=== PATIENT | female | born 1940 | race African-American/Black ===

== ENCOUNTER 2020-05-28 06:48 | Outpatient (REF) | payer SELFPAY | END 2020-05-28 06:49 | disposition home or self-care (01) | LOC: HO.MMNH1L 06:48 | PROVIDERS: Visit Provider Family Medicine | DX: Z13.89 Encounter for screening for other disorder (principal) ==

== ENCOUNTER 2020-06-06 07:12 | Outpatient (REF) | payer SELFPAY ==
[2020-06-06 07:29] LABS: INTERNATIONAL NORM RATIO 2.1 (0.9-1.1); Prothrombin Time 24.7 SEC (10.8-13.0)
== END 2020-06-06 07:13 | disposition home or self-care (01) ==
LOC: HO.MMNH1L 07:12
PROVIDERS: Visit Provider Family Medicine
DX: I48.91 Unspecified atrial fibrillation (principal)
CPT/HCPCS: 36415; 85610

== ENCOUNTER 2020-06-09 12:48 | Outpatient (REF) | payer MEDICARE, SELFPAY ==
[2020-06-09 08:24] LABS: INTERNATIONAL NORM RATIO 1.5 (0.9-1.1); Prothrombin Time 17.9 SEC (10.8-13.0)
[2020-06-09 08:26] LABS: Mean Corpuscular HGB Conc 31.3 g/dl (31.0-35.0); Mean Corpuscular Hemoglobin 30.7 pg (27.0-33.0); Mean Platelet Volume 9.7 fL (9.4-12.3); Platelet Count 248 X10*3/uL (160-400); Red Blood Count 2.05 X10*6/uL (4.20-5.50); Red Cell Distribution Width 16.3 % (11.0-16.0); White Blood Count 4.7 X10*3/uL (4.8-10.8)
[2020-06-09 09:04] LABS: Anion Gap 13 (12-20); Blood Urea Nitrogen 23 mg/dL (9-16); Calcium 7.6 mg/dL (8.4-10.2); Carbon Dioxide 34 mmol/L (22-29); Chloride 96 mmol/L (96-108); Estimated Glomerular Filt Rate 12; Glucose Random 79 mg/dL (60-115); Potassium 3.4 mmol/L (3.3-5.1); Sodium 140 mmol/L (135-145)
[2020-06-09 09:34] LABS: Hematocrit 20.1 % (37-47); Hemoglobin 6.3 g/dl (12.0-16.0)
== END 2020-06-09 12:49 | disposition home or self-care (01) ==
LOC: HO.MMNH1L 12:48
PROVIDERS: Visit Provider Family Medicine
DX: I82.409 Acute embolism and thrombosis of unspecified deep veins of unspecified lower extremity (principal); I12.0 Hypertensive chronic kidney disease with stage 5 chronic kidney disease or end stage renal disease; N18.6 End stage renal disease
CPT/HCPCS: 36415; 80048; 85027; 85060; 85610

== ENCOUNTER 2020-07-14 01:04 | Outpatient (REF) | payer SELFPAY | END 2020-07-14 01:05 | disposition home or self-care (01) | LOC: HO.MMNH2L 01:04 | PROVIDERS: Visit Provider Family Medicine | DX: Z13.89 Encounter for screening for other disorder (principal) ==

== ENCOUNTER 2020-07-17 12:30 | Emergency (ER) | payer MEDICARE, SELFPAY ==
--- NOTE | ~2020-07-17 | CT_ITS ---
EXAMINATION: CT HEAD WITHOUT CONTRAST CLINICAL INFORMATION: Altered mental status COMPARISON: None TECHNIQUE: Contiguous axial imaging was performed from the skull base to vertex without intravenous administration of contrast. Additional 2-D coronal and sagittal reformatted images are generated on the CT workstation and uploaded to PACS. This CT examination was performed using dose optimization techniques as appropriate, variously including the following: *Automated exposure control *Adjustment of mA and/or kV according to patient size (this includes techniques or standardized protocols for targeted exams where dose is matched to indication/reason for exam; i.e. extremities or head) *Use of iterative reconstruction technique DLP: 692 mGy-cm FINDINGS: There is no intracranial hemorrhage or hematoma. The ventricles are normal in size and contour. There is no hydrocephalus and no edema or mass effect or midline shift. There are mild to moderate atrophic changes with prominence of the cortical sulci and fissures and cisterns. There is somewhat greater involvement in the frontal lobes with secondary mild frontal hygromas. There is no visible acute territorial infarct or mass lesion. There is incidental small bilateral basal ganglia calcifications. The calvarium appears intact. There is no pneumocephalus or orbital emphysema. The visualized sinuses and middle ears and mastoid air cells show no significant mucosal thickening. There are no air-fluid levels. CT/CT head/brain wo con IMPRESSION: 1. No acute intracranial abnormality. 2. Mild to moderate global atrophic changes, greater frontal lobes.
[2020-07-17 12:43] VITALS: BP 172/73; BP 178/79; PULSE 80; RESP 16; TEMP 37.1; O2SAT 96; BMI 34.3
[2020-07-17 12:50] LABS: Glucose, Whole Blood 80 mg/dL (60-115)
--- NOTE | 2020-07-17 12:53 | ECG_ITS ---
Test Reason : SYNCOPE Blood Pressure : / mmHG Vent. Rate : 075 BPM Atrial Rate : 075 BPM P-R Int : 184 ms QRS Dur : 152 ms QT Int : 500 ms P-R-T Axes : 077 -80 042 degrees QTc Int : 558 ms Sinus rhythm with marked sinus arrhythmia Right bundle branch block Left anterior fascicular block Bifascicular block Abnormal ECG When compared with ECG of 13-JUL-2005 10:39, QT has lengthened Referred By: Eufemia Awan Electronically Signed By:TIM CHACON
--- NOTE | 2020-07-17 13:00 | ED_ITS ---
HPI - General Adult General Chief complaint: General Medical Stated complaint: SYNCOPAL EPISODE VS ABSENT SZ @ DIALYSIS Time Seen by Provider: 07/17/20 12:53 Source: patient Mode of arrival: EMS Limitations: no limitations History of Present Illness HPI narrative: 80 y/o female with history of ESRD on HD Tues/Thus/Sat, large bowel obstruction s/p colostomy, multiple myeloma with chronic anemia (requiring multiple transfusions) & HTN who presents to the ED via EMS after she reportedly had an unresponsive episode about 1 hour into her dialysis session today. Per EMS she was just starting into space and not following commands. It is unclear if she was hypotensive but reportedly she was given fluids back. Session was terminated and she was brought to [facility] ED for evaluation. She arrives AAOx3 and recalls 5-6 people standing over her in dialysis. She does not recall what happened but states nothing like this has happened to her before. She denies history of seizures. She reports feeling cold prior to this event. She is a poor historian and does not know her medical history. Spoke with Amber at [facility] in [place] who witnessed the event - patient starred into space and was not verbalizing or following commands for about 2 minutes. 911 was called and by the time they got off the phone she was AAOx3. BP was stable in the 160s for the duration. No history of the same. She was not confused. She did not want to come to the hospital but was encouraged to do so because she lives home alone. complaint: altered mental status Onset (ago): hour(s) (1) Radiation: non-radiation Severity scale (1-10): 3 Pain Consistency: now resolved Relieving factors: none Exacerbating factors: none Associated symptoms: denies other symptoms Treatments prior to arrival: none Related Data Home Medications Medication Instructions Recorded Confirmed B complex with C 20-folic acid 1 cap PO DAILY 07/17/20 07/17/20 [Renal Caps] acyclovir 400 mg PO DAILY 07/17/20 07/17/20 amlodipine 1 tab PO DAILY 07/17/20 07/17/20 amlodipine 2.5 mg PO DAILY 07/17/20 07/17/20 cholecalciferol (vitamin D3) 50 mcg PO DAILY 07/17/20 07/17/20 dexamethasone 20 mg PO Q7D 07/17/20 07/17/20 ixazomib [Ninlaro] 3 mg PO Q7D 07/17/20 07/17/20 loperamide 1 tab PO 5XD PRN 07/17/20 07/17/20 polyethylene glycol 3350 17 g PO DAILY PRN 07/17/20 07/17/20 sevelamer carbonate 1 tab PO TID 07/17/20 07/17/20 simvastatin 10 mg PO BEDTIME 07/17/20 07/17/20 warfarin 5 - 10 mg PO DAILY 07/17/20 07/17/20 Allergies Allergy/AdvReac Type Severity Reaction Status Date / Time No Known Allergies Allergy Unverified 11/08/19 15:10 Review of Systems Review of Systems: Constitutional: No Fever, No Chills ENT/Mouth: No sore throat, No Rhinorrhea, No Swallowing Difficulty Eyes: No Eye Pain, No Swelling, No Redness Cardiovascular: No Chest Pain, No SOB, No Orthopnea, No Edema Respiratory: No Cough, No Sputum, No Wheezing, No dyspnea Gastrointestinal: No Nausea, No Vomiting, No Diarrhea, No abdominal Pain, No H ematochezia, No Melena Genitourinary: No Dysuria, No Urinary Frequency, No Hematuria Musculoskeletal: No joint pain, No Myalgias Skin: No Skin Lesions, No rash Neuro: No Weakness, No Numbness, No Dizziness, No Headache Psych: No Anxiety/Panic, No Depression Heme/Lymph: No Bruising, No Lymphadenopathy Endocrine: No Polyuria, No Polydipsia PMFSH Past Medical History Attestation statement: The following information was validated with the patient. Medical History High cholesterol History of renal dialysis HTN (hypertension) Kidney failure Surgical History (Updated 07/17/20 @ 12:52 by Hedy Stover) Hx of colostomy Social History Social History Patient Tobacco Use Status: Never used Tobacco Use of substances other than those prescribed or required for medical reasons: No Advance Directives: No Advance Directives Information Provided: Yes Physical Exam Vital Signs: Vital Signs: Last Vital Signs Temp 98.3 F 07/17/20 17:47 Pulse 73 07/17/20 17:47 Resp 16 07/17/20 17:47 BP 154/62 H 07/17/20 17:47 Pulse Ox 96 07/17/20 12:43 Body Mass Index 34.3 Appearance: Alert. Oriented X3. No acute distress. Eyes: Pupils equal, round and reactive to light. ENT: Pharynx normal. Neck: Normal inspection. Neck supple. CVS: Normal heart rate and rhythm. Pulses normal. Respiratory: No respiratory distress. Breath sounds normal. Right upper chest wall with port. Abdomen: Soft and nontender. +BS x4. Colostomy bag in place. Skin: Skin warm and dry. Normal skin color. Normal skin turgor. No rashes. Extremities: Trace lower extremity edema. Neuro: Oriented X 3. No motor deficit. No sensory deficit. Speaks in complete sentences. Course Course Course Narrative: 80 y/o female presenting to ED from HD session with unresponsive episode about 2 minutes in duration without a post-ictal state. No history of seizures. Question abscence seizure vs transient hypotension vs symptomatic anemia. She is a very poor historian. Will get records from [facility], reports being hospitalized there in March for her abdominal srugery. Reevaluation(s) Reevaluation #1: CBC came back with pancytopenia, H/H is 6.6/19.4., previously 6.9/20.9 about 10 days ago. She thinks she last got blood a couple of months ago. She denies any evidence of bloody stools in her ostomy bag, no black stools. No lightheaded or dizziness. Troponin 81 - no chest pain or SOB. Possibly demand leak due to anemia. Will trend. Records received from dialysis - her baseline H/H is 7.5/24. Type and screen ordered - will plan to transfuse 1 unit PRBC now. She does not want to be admitted to the hospital. She wants to go home. Agreeable to blood transfusion. Will re-discuss dispo with patient after she speaks with her significant other. Reevaluation #2: 5:50 pm - Blood now transfusing. Patient wants to go home. She does NOT want to go back to rehab facility and does NOT want to be admitted. Will plan for discharge home after blood transfusion. Signed out to Dr. Ramirez who will assume care. Medical Decision Making Lab Data Result diagrams: 07/17/20 14:02 07/17/20 14:02 Labs: Lab Results 07/17/20 07/17/20 07/17/20 Range/Units 12:44 14:02 14:02 WBC 4.3 L (4.8-10.8) X10*3/uL RBC 2.00 L (4.20-5.50) X10*6/uL Hgb 6.6 L* (12.0-16.0) g/dl Hct 19.4 L* (37-47) % MCV 97.0 (80-98) fL MCH 33.0 (27.0-33.0) pg MCHC 34.0 (31.0-35.0) g/dl RDW 15.1 (11.0-16.0) % Plt Count 134 L (160-400) X10*3/uL MPV 8.5 L (9.4-12.3) fL Immature Gran % (Auto) 0.2 (0.0-0.4) % Neut % (Auto) 69.6 (45-73) % Lymph % (Auto) 17.3 L (20-40) % [place] % (Auto) 11.8 H (2-11) % Eos % (Auto) 0.9 (0-4) % Baso % (Auto) 0.2 (0-2) % Lymph # (Auto) 0.8 L (1.2-4.9) X10*3/uL [place] # (Auto) 0.5 (0.1-1.2) X10*3/uL Eos # (Auto) 0.0 (0.0-0.4) X10*3/uL Baso # (Auto) 0.0 (0.0-0.2) X10*3/uL Abs Immat Gran (auto) 0.01 (0.00-0.03) X10*3/uL Absolute Neuts (auto) 3.0 (2.0-8.3) X10*3/uL Absolute Nucleated RBC 0.000 (0.0-0.012) X10*3/uL Nucleated RBC % (auto) 0.0 (0.0-0.2) /100WBC PT 26.0 H D (10.8-13.0) SEC INR 2.2 H (0.9-1.1) APTT 71.6 H* (24.1-38.0) SEC Hold Blue Top SEE NOTE Sodium (135-145) mmol/L Potassium (3.3-5.1) mmol/L Chloride (96-108) mmol/L Carbon Dioxide (22-29) mmol/L Anion Gap (12-20) BUN (9-16) mg/dL Creatinine (0.5-1.4) mg/dL Estim Creat Clear Calc Estimated GFR POC Glucose 80 (60-115) mg/dL Random Glucose (60-115) mg/dL Calcium (8.4-10.2) mg/dL Phosphorus (2.7-4.5) mg/dL Magnesium (1.6-2.6) mg/dL Total Bilirubin (0.0-1.0) mg/dL Direct Bilirubin (0.0-0.5) mg/dL AST (5-31) U/L ALT (0-31) U/L Alkaline Phosphatase (39-117) U/L Troponin I High Sens (<3.5-17.0) ng/L Total Protein (6.5-8.0) g/dL Albumin (3.5-5.0) g/dL Blood Type Antibody Screen Crossmatch 07/17/20 07/17/20 07/17/20 Range/Units 14:02 14:02 15:37 WBC (4.8-10.8) X10*3/uL RBC (4.20-5.50) X10*6/uL Hgb (12.0-16.0) g/dl Hct (37-47) % MCV (80-98) fL MCH (27.0-33.0) pg MCHC (31.0-35.0) g/dl RDW (11.0-16.0) % Plt Count (160-400) X10*3/uL MPV (9.4-12.3) fL Immature Gran % (Auto) (0.0-0.4) % Neut % (Auto) (45-73) % Lymph % (Auto) (20-40) % [place] % (Auto) (2-11) % Eos % (Auto) (0-4) % Baso % (Auto) (0-2) % Lymph # (Auto) (1.2-4.9) X10*3/uL [place] # (Auto) (0.1-1.2) X10*3/uL Eos # (Auto) (0.0-0.4) X10*3/uL Baso # (Auto) (0.0-0.2) X10*3/uL Abs Immat Gran (auto) (0.00-0.03) X10*3/uL Absolute Neuts (auto) (2.0-8.3) X10*3/uL Absolute Nucleated RBC (0.0-0.012) X10*3/uL Nucleated RBC % (auto) (0.0-0.2) /100WBC PT (10.8-13.0) SEC INR (0.9-1.1) APTT (24.1-38.0) SEC Hold Blue Top Sodium 139 (135-145) mmol/L Potassium 2.8 L D (3.3-5.1) mmol/L Chloride 95 L (96-108) mmol/L Carbon Dioxide 31 H (22-29) mmol/L Anion Gap 16 (12-20) BUN 16 (9-16) mg/dL Creatinine 3.99 H (0.5-1.4) mg/dL Estim Creat Clear Calc 11.6 Estimated GFR 11 POC Glucose (60-115) mg/dL Random Glucose 89 (60-115) mg/dL Calcium 7.9 L (8.4-10.2) mg/dL Phosphorus 2.4 L (2.7-4.5) mg/dL Magnesium 1.8 (1.6-2.6) mg/dL Total Bilirubin 0.4 (0.0-1.0) mg/dL Direct Bilirubin 0.3 (0.0-0.5) mg/dL AST 35 H D (5-31) U/L ALT 16 (0-31) U/L Alkaline Phosphatase 100 (39-117) U/L Troponin I High Sens 88.0 H* (<3.5-17.0) ng/L Total Protein 5.4 L (6.5-8.0) g/dL Albumin 3.2 L D (3.5-5.0) g/dL Blood Type O Positive Antibody Screen NEGATIVE Crossmatch See Detail 07/17/20 Range/Units 15:37 WBC (4.8-10.8) X10*3/uL RBC (4.20-5.50) X10*6/uL Hgb (12.0-16.0) g/dl Hct (37-47) % MCV (80-98) fL MCH (27.0-33.0) pg MCHC (31.0-35.0) g/dl RDW (11.0-16.0) % Plt Count (160-400) X10*3/uL MPV (9.4-12.3) fL Immature Gran % (Auto) (0.0-0.4) % Neut % (Auto) (45-73) % Lymph % (Auto) (20-40) % [place] % (Auto) (2-11) % Eos % (Auto) (0-4) % Baso % (Auto) (0-2) % Lymph # (Auto) (1.2-4.9) X10*3/uL [place] # (Auto) (0.1-1.2) X10*3/uL Eos # (Auto) (0.0-0.4) X10*3/uL Baso # (Auto) (0.0-0.2) X10*3/uL Abs Immat Gran (auto) (0.00-0.03) X10*3/uL Absolute Neuts (auto) (2.0-8.3) X10*3/uL Absolute Nucleated RBC (0.0-0.012) X10*3/uL Nucleated RBC % (auto) (0.0-0.2) /100WBC PT (10.8-13.0) SEC INR (0.9-1.1) APTT (24.1-38.0) SEC Hold Blue Top Sodium (135-145) mmol/L Potassium (3.3-5.1) mmol/L Chloride (96-108) mmol/L Carbon Dioxide (22-29) mmol/L Anion Gap (12-20) BUN (9-16) mg/dL Creatinine (0.5-1.4) mg/dL Estim Creat Clear Calc Estimated GFR POC Glucose (60-115) mg/dL Random Glucose (60-115) mg/dL Calcium (8.4-10.2) mg/dL Phosphorus (2.7-4.5) mg/dL Magnesium (1.6-2.6) mg/dL Total Bilirubin (0.0-1.0) mg/dL Direct Bilirubin (0.0-0.5) mg/dL AST (5-31) U/L ALT (0-31) U/L Alkaline Phosphatase (39-117) U/L Troponin I High Sens 71.1 H* (<3.5-17.0) ng/L Total Protein (6.5-8.0) g/dL Albumin (3.5-5.0) g/dL Blood Type Antibody Screen Crossmatch ECG Data Attestation: I personally reviewed and interpreted this ECG as follows: Prior ECG tracings: not available for review Interpretation: normal sinus rhythm, bifascicular block, HR 73 bpm, normal SD interval, wide QRS [address] elevations. Critical Care Time Critical Care Time Critical Care Time: Yes Total Critical Care Time: 44 Attestation: I attest to critical care time spent caring for this patient. Discharge Plan Discharge Clinical Impression: Acute on chronic anemia Instructions: Anemia (ED) Additional Instructions: Your blood counts were low today - you were given 1 unit of red blood cells. Follow up with your doctor tomorrow. Report to dialysis as scheduled on Tuesday. Recommend someone stay with you tonight. If you have shortness of breath, chest pain, weakness, dizziness or any other concerning symptom come back to the ER for further evaluation. Prescriptions: No Action simvastatin 10 mg tablet 10 mg PO BEDTIME RF: 0 amlodipine 2.5 mg tablet 2.5 mg PO DAILY RF: 0 acyclovir 400 mg tablet 400 mg PO DAILY RF: 0 warfarin 5 mg tablet 5 - 10 mg PO DAILY RF: 0 Ninlaro 3 mg capsule 3 mg PO Q7D RF: 0 loperamide 2 mg tablet 1 tab PO 5XD PRN (Reason: diarrhea) RF: 0 amlodipine 2.5 mg tablet 1 tab PO DAILY RF: 0 dexamethasone 4 mg tablet 20 mg PO Q7D RF: 0 Renal Caps 1 mg Capsule 1 cap PO DAILY RF: 0 polyethylene glycol 3350 17 gram/dose powder 17 g PO DAILY PRN (Reason: Constipation) RF: 0 sevelamer carbonate 800 mg tablet 1 tab PO TID RF: 0 cholecalciferol (vitamin D3) 50 mcg (2,000 unit) Tablet 50 mcg PO DAILY RF: 0
[2020-07-17 14:10] LABS: MANUAL DIFF FLAG NO
[2020-07-17 14:11] LABS: Basophils Percent Auto 0.2 % (0-2); Eosinophils Percent Auto 0.9 % (0-4); Imm Gran Abs Auto 0.01 X10*3/uL (0.00-0.03); Imm Gran Pct Auto 0.2 % (0.0-0.4); Lymphocytes Absolute Auto 0.8 X10*3/uL (1.2-4.9); Lymphocytes Percent Auto 17.3 % (20-40); Mean Platelet Volume 8.5 fL (9.4-12.3); Monocytes Absolute Auto 0.5 X10*3/uL (0.1-1.2); Monocytes Percent Auto 11.8 % (2-11); Neutrophils Percent Auto 69.6 % (45-73); Platelet Count 134 X10*3/uL (160-400); Red Cell Distribution Width 15.1 % (11.0-16.0); White Blood Count 4.3 X10*3/uL (4.8-10.8)
[2020-07-17 14:14] LABS: Hematocrit 19.4 % (37-47); Hemoglobin 6.6 g/dl (12.0-16.0)
[2020-07-17 14:18] LABS: INTERNATIONAL NORM RATIO 2.2 (0.9-1.1)
--- NOTE | 2020-07-17 14:48 | HE.PHANOTE ---
UPON INTERVIEW PATIENT STATED TO PHARMACIST THAT SHE DOES NOT KNOW HER MEDS. MANY ARE BEYOND THEIR REFILL DATE IN CLAIM HISTORY. PHARMACY OBTAINED MEDICATION LIST FROM [facility] WHICH STATES IT WAS LAST REVIEWED 04/12/20.
[2020-07-17 15:07] LABS: Alanine Aminotransferase 16 U/L (0-31); Albumin Level 3.2 g/dL (3.5-5.0); Alkaline Phosphatase 100 U/L (39-117); Anion Gap 16 (12-20); Aspartate Amino Transferase 35 U/L (5-31); Bilirubin Direct 0.3 mg/dL (0.0-0.5); Bilirubin Total 0.4 mg/dL (0.0-1.0); Blood Urea Nitrogen 16 mg/dL (9-16); Calcium 7.9 mg/dL (8.4-10.2); Carbon Dioxide 31 mmol/L (22-29); Chloride 95 mmol/L (96-108); Creatinine Clr Calc Pharmacy 11.6; Estimated Glomerular Filt Rate 11; Glucose Random 89 mg/dL (60-115); Magnesium 1.8 mg/dL (1.6-2.6); Partial Thromboplastin Time 71.6 SEC (24.1-38.0); Phosphorus 2.4 mg/dL (2.7-4.5); Potassium 2.8 mmol/L (3.3-5.1); Sodium 139 mmol/L (135-145); Total Protein 5.4 g/dL (6.5-8.0)
[2020-07-17 16:15] LABS: Troponin-I High Sensitivity 71.1 ng/L (<3.5-17.0)
[2020-07-17 17:32] VITALS: BP 153/63; PULSE 77; RESP 16; TEMP 36.9
[2020-07-17 17:47] VITALS: BP 154/62; PULSE 73; RESP 16; TEMP 36.8
[2020-07-17 19:37] VITALS: BP 150/69; PULSE 74; RESP 16; TEMP 37
== END 2020-07-17 20:36 | disposition left against medical advice (07) ==
PROVIDERS: Emergency Medicine; Physician Assistant; Emergency Provider Emergency Medicine Emergency Medical Services; PCP Internal Medicine
DX: R55 Syncope and collapse (principal); D63.1 Anemia in chronic kidney disease; I12.0 Hypertensive chronic kidney disease with stage 5 chronic kidney disease or end stage renal disease; N18.6 End stage renal disease; Z79.899 Other long term (current) drug therapy
CPT/HCPCS: 36415; 36430; 70450; 80048; 80076; 82947; 83735; 84100; 84484; 85025; 85610; 85730; 86850; 86900; 86901; 86923; 93005; 99284; 99291; P9016

== ENCOUNTER 2020-07-23 09:46 | Inpatient (IN) | payer MEDICARE, SELFPAY ==
[2020-07-23] VITALS (10 sets, daily range): BP systolic 137–167; BP diastolic 52–89; PULSE 76–93; RESP 11–18; TEMP 36.3–37.3; O2SAT 91–100; BMI 34.3
--- NOTE | ~2020-07-23 | CT_ITS ---
EXAMINATION: CT ABDOMEN AND PELVIS WITHOUT CONTRAST CLINICAL INFORMATION: Epigastric/left lower quadrant pain with nausea and vomiting. COMPARISON: April 17, 2015 TECHNIQUE: Multidetector volumetric imaging was performed from the superior aspect of the liver through the pubic symphysis. Sagittal and coronal reformatted images were obtained on the technologist's workstation. This CT examination was performed using dose optimization techniques as appropriate, variously including the following: *Automated exposure control *Adjustment of mA and/or kV according to patient size (this includes techniques or standardized protocols for targeted exams where dose is matched to indication/reason for exam; i.e. extremities or head) *Use of iterative reconstruction technique DLP: 940 mGy-cm FINDINGS: LUNG BASES: There are bilateral pleural effusions, moderate right and small left, with associated atelectasis. Heart normal size. Small amount of pericardial fluid. Prominent coronary artery calcifications are seen. LIVER, GALLBLADDER, AND BILIARY TREE: The liver is normal in size, shape, and attenuation. No focal hepatic lesion or biliary ductal dilatation is present. Cholelithiasis is present without evidence of acute cholecystitis. PANCREAS: Unremarkable. SPLEEN: Unremarkable. ADRENAL GLANDS: Unremarkable. KIDNEYS AND URETERS: The right kidney is atrophic. Proximal right ureter is prominent. The left kidney demonstrates what appears to be hydronephrosis with hydroureter down to the mid left ureter where there appears to be a kink in the ureter and a normal-sized ureter distal to that. No renal cortex is appreciated. No suspicious renal mass is seen. BLADDER: Decompressed GASTROINTESTINAL TRACT: No dilated loops of large or small bowel are seen. No free air or free fluid is appreciated. Patient status post hemicolectomy and with ileostomy. No parastomal hernia is appreciated. Within the right lower quadrant there is also some scarring about the anterior abdominal wall which may be related to previous colostomy. ABDOMINAL WALL: Ileostomy in place. There has been atrophy of the right iliacus muscle. LYMPH NODES: No lymphadenopathy is appreciated. VASCULAR: There is prominent arterial calcified plaque present. A vascular stent is seen within the left upper extremity. There is calcification about the ostium of the visceral vessels. No abdominal aortic aneurysm is seen. PELVIC VISCERA: No suspicious pelvic mass. OSSEOUS STRUCTURES: No suspicious destructive bony lesions are identified. There is severe multilevel degenerative disc disease seen within the L2-S1 levels as well as involving the inferior thoracic spine with what appears to be loss of disc spaces with near fusion involving the lower thoracic spine. Patient is status post pedicle screw and julia fixation at the L4-L5 levels with L4-L5 laminectomies. CT/CT abdomen pelvis wo con IMPRESSION: Bilateral renal atrophy with left hydronephrosis with no visible cortex identified. No evidence of ileus or obstruction. No free air or free fluid. Bilateral pleural effusions with bibasilar airspace disease. Cholelithiasis without evidence of acute cholecystitis. Status post colectomy with ileostomy noted without parastomal hernia. Diffuse atherosclerotic disease with calcified plaque causing stenoses at the origin of the visceral vessels. Degenerative disc disease throughout the lower thoracic and lumbar spine as described.
--- NOTE | ~2020-07-23 | XR_ITS ---
EXAMINATION: XR CHEST CLINICAL INFORMATION: Emesis, edema COMPARISON: CT abdomen 07/23/2020 TECHNIQUE: Portable upright AP view of the chest was obtained. FINDINGS: Patient is rotated to the right. There is a right subclavian tunneled port with tip at right atrium. Bibasilar effusions and passive atelectasis are again noted, greater on the right, better appreciated on the CT exam. The heart is within normal size and the pulmonary vascularity is within normal. There is tortuous thoracic aorta with atherosclerotic calcification. XR/XR chest 1V IMPRESSION: Bibasilar effusions and basilar atelectasis, greater on right.
--- NOTE | 2020-07-23 10:16 | ECG_ITS ---
Test Reason : WEAKNESS Blood Pressure : / mmHG Vent. Rate : 095 BPM Atrial Rate : 097 BPM P-R Int : 000 ms QRS Dur : 144 ms QT Int : 462 ms P-R-T Axes : 000 -87 051 degrees QTc Int : 580 ms Normal sinus rhythm Right bundle branch block Left anterior fascicular block Bifascicular block Abnormal ECG When compared with ECG of 17-JUL-2020 13:31, No significant changes seen Referred By: Anjelica Parmar Electronically Signed By:Cole Villagomez
--- NOTE | 2020-07-23 10:21 | ED_ITS ---
HPI - Nausea/Vomiting/Diarrhea General Chief complaint: Nausea/Vomiting/Diarrhea Stated complaint: VOMITING SINCE LAST NIGHT Time Seen by Provider: 07/23/20 10:04 Source: family History of Present Illness HPI Narrative: 80 y/o female with history of ESRD on HD Tu/Thus/Tue, large bowel obstruction s/p colostomy, multiple myeloma with chronic anemia (requiring multiple transfusions) & HTN who presents to the ED via EMS c/o nausea, vomiting, and abdominal pain since last night. Admits to generalized myalgias/malaise, chills, and LE edema. Last dialysis yesterday. Denies fever, chest pain, shortness of breath, dysuria/hematuria, diarrhea/constipation, bloo dy/black stool, hematemesis Related Data Home Medications Medication Instructions Recorded Confirmed B complex with C 20-folic acid 1 cap PO DAILY 07/17/20 07/17/20 [Renal Caps] acyclovir 400 mg PO DAILY 07/17/20 07/17/20 amlodipine 1 tab PO DAILY 07/17/20 07/17/20 amlodipine 2.5 mg PO DAILY 07/17/20 07/17/20 cholecalciferol (vitamin D3) 50 mcg PO DAILY 07/17/20 07/17/20 dexamethasone 20 mg PO Q7D 07/17/20 07/17/20 ixazomib [Ninlaro] 3 mg PO Q7D 07/17/20 07/17/20 loperamide 1 tab PO 5XD PRN 07/17/20 07/17/20 polyethylene glycol 3350 17 g PO DAILY PRN 07/17/20 07/17/20 sevelamer carbonate 1 tab PO TID 07/17/20 07/17/20 simvastatin 10 mg PO BEDTIME 07/17/20 07/17/20 warfarin 5 - 10 mg PO DAILY 07/17/20 07/17/20 Allergies Allergy/AdvReac Type Severity Reaction Status Date / Time No Known Allergies Allergy Unverified 11/08/19 15:10 Review of Systems Review of Systems: Constitutional: No Fever, + Chills, No Night Sweats, No Fatigue, + Malaise Cardiovascular: No Chest Pain, No SOB, + Edema, No Palpitations Respiratory: No Cough, No Dyspnea Gastrointestinal: + Nausea, + Vomiting, No Diarrhea, No Constipation, + Abdominal pain, No Hematochezia, No Melena Genitourinary: No Dysuria, No Urinary Frequency, No Hematuria, No Flank Pain Musculoskeletal: No joint pain, No Myalgias, No Joint Swelling Skin: No Skin Lesions, No rash Neuro: No Weakness, No Numbness, No Headache Yes all other systems are reviewed and are negative [facility] Past Medical History Attestation statement: The following information was validated with the patient. Medical History High cholesterol History of renal dialysis HTN (hypertension) Kidney failure Surgical History (Updated 07/17/20 @ 12:52 by Hedy Stover) Hx of colostomy Social History Social History Patient Tobacco Use Status: Never used Tobacco Advance Directives: Yes Advance Directives Information Provided: Yes Advance Directives on File: No Physical Exam Vital Signs: Vital Signs: Last Vital Signs Temp 98.2 F 07/23/20 09:54 Pulse 90 07/23/20 09:54 Resp 18 07/23/20 09:54 BP 146/64 H 07/23/20 09:54 Pulse Ox 100 07/23/20 09:54 Body Mass Index 34.3 Const: General: cooperative, healthy appearing and no acute distress Orientation/consciousness: patient oriented x3 Limitations: no limitations HENMT: Head: Yes normal to inspection Ears: hearing grossly normal bilaterally General nose exam: Normal external nose present Face and sinus: Yes normal facial exam Eyes: General: appearance normal, both eyes and all related structures EOM: EOMs intact bilaterally Neck: Neck: Yes normal visual inspection Resp: Effort & Inspection: normal respiratory effort Auscultation: clear to auscultation bilaterally and no wheezes Cardio: Rate: regular rate Heart sounds: S1 normal heart sound present and S2 normal heart sound present GI: Inspection: Yes normal to inspection Palpation (GI): Soft to palpation, Tenderness to palpation present (GI) (Colostomy bag in place) in the epigastrum, in the LLQ and in the LUQ, no guarding and not rigid : General: Yes no CVA tenderness Back/Spine/Pelvis: Back: no CVA tenderness Skin: Rashes: no rashes Wounds: no wounds Neuro: General: patient oriented x3 Gait exam (Neuro): Normal gait present Extrem: General: Yes normal to inspection and Yes edema Course Course Course Narrative: -acute on chronic anemia with a hemoglobin of 5.8/16.7 >> 2 units RBCs ordered will run very slowly -potassium low at 2.8 > will give 10 mEq use IV repletion. Renal function at baseline elevated 66.8 likely from renal dysfunction CT abdomen pelvis wo con IMPRESSION: Bilateral renal atrophy with left hydronephrosis with no visible cortex identified. No evidence of ileus or obstruction. No free air or free fluid. Bilateral pleural effusions with bibasilar airspace disease. Cholelithiasis without evidence of acute cholecystitis. Status post colectomy with ileostomy noted without parastomal hernia. Diffuse atherosclerotic disease with calcified plaque causing stenoses at the origin of the visceral vessels. Degenerative disc disease throughout the lower thoracic and lumbar spine as described. >> Renal paged. Plan for admission patient will need dialysis in the morning -Spoke to nephrology Dr. Moya patient will receive dialysis in the morning MDM - Nausea/Vomiting/Diarrhea MDM Narrative Medical decision making narrative: 80 y/o female with history of ESRD on HD Tues/Thus/Sat, large bowel obstruction s/p colostomy, multiple myeloma with chronic anemia (requiring multiple transfusions) & HTN who presents to the ED via EMS c/o nausea, vomiting, and abdominal pain since last night. On exam vital signs stable, NAD, nontoxic, abdomen soft with epigastric/LUQ/LLQ TTP, + pedal edema. Concern for SBO vs diverticulitis or other intra-abdominal pathology vs metabolic abnormalities. R/o anemia as patient recently seen in ED for unresponsive episode requiring transfusion Plan: EKG, labs, UA, CT AP, reassess Medical Records Attestation: I reviewed the patient's medical records. Lab Data Attestation: I reviewed the patient's lab results. Result diagrams: 07/23/20 10:52 07/23/20 10:52 Labs: Lab Results 07/23/20 07/23/20 07/23/20 Range/Units 10:41 10:52 10:52 WBC 4.1 L (4.8-10.8) X10*3/uL RBC 1.73 L (4.20-5.50) X10*6/uL Hgb 5.8 L* (12.0-16.0) g/dl Hct 16.7 L* (37-47) % MCV 96.5 (80-98) fL MCH 33.5 H (27.0-33.0) pg MCHC 34.7 (31.0-35.0) g/dl RDW 16.3 H (11.0-16.0) % Plt Count 126 L (160-400) X10*3/uL MPV 9.2 L (9.4-12.3) fL Immature Gran % (Auto) 0.5 H (0.0-0.4) % Neut % (Auto) 78.2 H (45-73) % Lymph % (Auto) 13.6 L (20-40) % [place] % (Auto) 7.5 (2-11) % Eos % (Auto) 0.0 (0-4) % Baso % (Auto) 0.2 (0-2) % Lymph # (Auto) 0.6 L (1.2-4.9) X10*3/uL [place] # (Auto) 0.3 (0.1-1.2) X10*3/uL Eos # (Auto) 0.0 (0.0-0.4) X10*3/uL Baso # (Auto) 0.0 (0.0-0.2) X10*3/uL Abs Immat Gran (auto) 0.02 (0.00-0.03) X10*3/uL Absolute Neuts (auto) 3.2 (2.0-8.3) X10*3/uL Absolute Nucleated RBC 0.000 (0.0-0.012) X10*3/uL Nucleated RBC % (auto) 0.0 (0.0-0.2) /100WBC Smear Tech's Comments VERIFIED PT 35.5 H D (10.8-13.0) SEC INR 3.0 H (0.9-1.1) APTT 42.0 H D (24.1-38.0) SEC Sodium (135-145) mmol/L Potassium (3.3-5.1) mmol/L Chloride (96-108) mmol/L Carbon Dioxide (22-29) mmol/L Anion Gap (12-20) BUN (9-16) mg/dL Creatinine (0.5-1.4) mg/dL Estim Creat Clear Calc Estimated GFR Random Glucose (60-115) mg/dL Calcium (8.4-10.2) mg/dL Magnesium (1.6-2.6) mg/dL Total Bilirubin (0.0-1.0) mg/dL Direct Bilirubin (0.0-0.5) mg/dL AST (5-31) U/L ALT (0-31) U/L Alkaline Phosphatase (39-117) U/L Troponin I High Sens (<3.5-17.0) ng/L B-Natriuretic Peptide (<100) pg/mL Total Protein (6.5-8.0) g/dL Albumin (3.5-5.0) g/dL Lipase (8-78) U/L COVID-19 (ETHAN) Negative (Negative) COVID-19 Clin Com See Note Blood Type Antibody Screen Crossmatch 07/23/20 07/23/20 07/23/20 Range/Units 10:52 10:52 10:52 WBC (4.8-10.8) X10*3/uL RBC (4.20-5.50) X10*6/uL Hgb (12.0-16.0) g/dl Hct (37-47) % MCV (80-98) fL MCH (27.0-33.0) pg MCHC (31.0-35.0) g/dl RDW (11.0-16.0) % Plt Count (160-400) X10*3/uL MPV (9.4-12.3) fL Immature Gran % (Auto) (0.0-0.4) % Neut % (Auto) (45-73) % Lymph % (Auto) (20-40) % [place] % (Auto) (2-11) % Eos % (Auto) (0-4) % Baso % (Auto) (0-2) % Lymph # (Auto) (1.2-4.9) X10*3/uL [place] # (Auto) (0.1-1.2) X10*3/uL Eos # (Auto) (0.0-0.4) X10*3/uL Baso # (Auto) (0.0-0.2) X10*3/uL Abs Immat Gran (auto) (0.00-0.03) X10*3/uL Absolute Neuts (auto) (2.0-8.3) X10*3/uL Absolute Nucleated RBC (0.0-0.012) X10*3/uL Nucleated RBC % (auto) (0.0-0.2) /100WBC Smear Tech's Comments PT (10.8-13.0) SEC INR (0.9-1.1) APTT (24.1-38.0) SEC Sodium 141 (135-145) mmol/L Potassium 2.8 L (3.3-5.1) mmol/L Chloride 94 L (96-108) mmol/L Carbon Dioxide 34 H (22-29) mmol/L Anion Gap 16 (12-20) BUN 33 H D (9-16) mg/dL Creatinine 3.95 H (0.5-1.4) mg/dL Estim Creat Clear Calc 11.7 Estimated GFR 11 Random Glucose 106 (60-115) mg/dL Calcium 7.8 L (8.4-10.2) mg/dL Magnesium 1.8 (1.6-2.6) mg/dL Total Bilirubin 0.6 (0.0-1.0) mg/dL Direct Bilirubin 0.3 (0.0-0.5) mg/dL AST 24 (5-31) U/L ALT 11 (0-31) U/L Alkaline Phosphatase 77 D (39-117) U/L Troponin I High Sens 66.8 H* (<3.5-17.0) ng/L B-Natriuretic Peptide 459 H (<100) pg/mL Total Protein 5.4 L (6.5-8.0) g/dL Albumin 3.3 L (3.5-5.0) g/dL Lipase 13 (8-78) U/L COVID-19 (ETHAN) (Negative) COVID-19 Clin [facility] Blood Type Antibody Screen Crossmatch 07/23/20 Range/Units 11:58 WBC (4.8-10.8) X10*3/uL RBC (4.20-5.50) X10*6/uL Hgb (12.0-16.0) g/dl Hct (37-47) % MCV (80-98) fL MCH (27.0-33.0) pg MCHC (31.0-35.0) g/dl RDW (11.0-16.0) % Plt Count (160-400) X10*3/uL MPV (9.4-12.3) fL Immature Gran % (Auto) (0.0-0.4) % Neut % (Auto) (45-73) % Lymph % (Auto) (20-40) % [place] % (Auto) (2-11) % Eos % (Auto) (0-4) % Baso % (Auto) (0-2) % Lymph # (Auto) (1.2-4.9) X10*3/uL [place] # (Auto) (0.1-1.2) X10*3/uL Eos # (Auto) (0.0-0.4) X10*3/uL Baso # (Auto) (0.0-0.2) X10*3/uL Abs Immat Gran (auto) (0.00-0.03) X10*3/uL Absolute Neuts (auto) (2.0-8.3) X10*3/uL Absolute Nucleated RBC (0.0-0.012) X10*3/uL Nucleated RBC % (auto) (0.0-0.2) /100WBC Smear Tech's Comments PT (10.8-13.0) SEC INR (0.9-1.1) APTT (24.1-38.0) SEC Sodium (135-145) mmol/L Potassium (3.3-5.1) mmol/L Chloride (96-108) mmol/L Carbon Dioxide (22-29) mmol/L Anion Gap (12-20) BUN (9-16) mg/dL Creatinine (0.5-1.4) mg/dL Estim Creat Clear Calc Estimated GFR Random Glucose (60-115) mg/dL Calcium (8.4-10.2) mg/dL Magnesium (1.6-2.6) mg/dL Total Bilirubin (0.0-1.0) mg/dL Direct Bilirubin (0.0-0.5) mg/dL AST (5-31) U/L ALT (0-31) U/L Alkaline Phosphatase (39-117) U/L Troponin I High Sens (<3.5-17.0) ng/L B-Natriuretic Peptide (<100) pg/mL Total Protein (6.5-8.0) g/dL Albumin (3.5-5.0) g/dL Lipase (8-78) U/L COVID-19 (ETHAN) (Negative) COVID-19 Clin Com Blood Type O Positive Antibody Screen NEGATIVE Crossmatch See Detail ECG Data Attestation: I personally reviewed and interpreted this ECG as follows: ECG interpretation date: 07/23/20 ECG interpretation time: 10:29 Prior ECG tracings: available for review Interpretation: EKG right bundle branch block with a wide QRS rhythm 95, no STEMI Discharge Plan Discharge Clinical Impression: Acute on chronic anemia Patient Disposition: Admitted As Inpatient
[2020-07-23 11:15] LABS: Basophils Percent Auto 0.2 % (0-2); Imm Gran Abs Auto 0.02 X10*3/uL (0.00-0.03); Imm Gran Pct Auto 0.5 % (0.0-0.4); Lymphocytes Absolute Auto 0.6 X10*3/uL (1.2-4.9); Lymphocytes Percent Auto 13.6 % (20-40); MANUAL DIFF FLAG SCAN; Mean Corpuscular HGB Conc 34.7 g/dl (31.0-35.0); Mean Corpuscular Hemoglobin 33.5 pg (27.0-33.0); Mean Corpuscular Volume 96.5 fL (80-98); Mean Platelet Volume 9.2 fL (9.4-12.3); Monocytes Absolute Auto 0.3 X10*3/uL (0.1-1.2); Monocytes Percent Auto 7.5 % (2-11); Neutrophils Absolute Auto 3.2 X10*3/uL (2.0-8.3); Neutrophils Percent Auto 78.2 % (45-73); Platelet Count 126 X10*3/uL (160-400); Red Blood Count 1.73 X10*6/uL (4.20-5.50); Red Cell Distribution Width 16.3 % (11.0-16.0); SCAN SMEAR FLAG 1; White Blood Count 4.1 X10*3/uL (4.8-10.8)
[2020-07-23 11:16] LABS: Prothrombin Time 35.5 SEC (10.8-13.0)
[2020-07-23 11:19] LABS: Hemoglobin 5.8 g/dl (12.0-16.0)
[2020-07-23 11:20] LABS: Hematocrit 16.7 % (37-47)
[2020-07-23 11:29] LABS: COVID-19 Test Negative (Negative)
[2020-07-23 11:33] LABS: B Type Natriuretic Peptide 459 pg/mL (<100)
[2020-07-23 11:36] LABS: SLIDE REVIEW VERIFIED
[2020-07-23 11:42] LABS: Troponin-I High Sensitivity 66.8 ng/L (<3.5-17.0)
[2020-07-23 11:44] LABS: Alanine Aminotransferase 11 U/L (0-31); Albumin Level 3.3 g/dL (3.5-5.0); Alkaline Phosphatase 77 U/L (39-117); Anion Gap 16 (12-20); Aspartate Amino Transferase 24 U/L (5-31); Bilirubin Direct 0.3 mg/dL (0.0-0.5); Bilirubin Total 0.6 mg/dL (0.0-1.0); Blood Urea Nitrogen 33 mg/dL (9-16); Calcium 7.8 mg/dL (8.4-10.2); Carbon Dioxide 34 mmol/L (22-29); Chloride 94 mmol/L (96-108); Creatinine Clr Calc Pharmacy 11.7; Estimated Glomerular Filt Rate 11; Glucose Random 106 mg/dL (60-115); Lipase 13 U/L (8-78); Magnesium 1.8 mg/dL (1.6-2.6); Sodium 141 mmol/L (135-145); Total Protein 5.4 g/dL (6.5-8.0)
[2020-07-23 11:52] LABS: Potassium 2.8 mmol/L (3.3-5.1)
[2020-07-23] MEDS: Metoclopramide HCl 10 MG/2 ML VIAL IVPUSH (12:58)
[2020-07-23] MEDS: Potassium Chloride/H20 10 MEQ/100 ML PIGGYBACK 100 MEQ IV (13:06)
[2020-07-23] MEDS: ondansetron HCL 4 MG/2 ML VIAL IVPUSH (13:55)
--- NOTE | 2020-07-23 14:56 | PC.NURSE ---
per Anjelica NAVAS, only give first unit of blood down here due to concerns of fluid overload. Monitoring at this time.
--- NOTE | 2020-07-23 17:11 | PM.IMHP ---
History of Present Illness Date of Service: 07/23/20 Chief Complaint: Nausea, vomiting This is an 80-year-old female who presents to the emergency department with multiple complaints. She states today she began having nausea and vomiting. Following that she began having upper abdominal pain. She also describes generalized weakness. In the emergency department she underwent CT scan of the abdomen which showed no evidence of ileus or obstruction. Chest x-ray showed bibasilar pleural effusions right greater than left. Routine lab work revealed anemia with H/H of 5.8/16.7 as well as potassium of 2.8. She denies any bloody output from her ostomy. She received antiemetics, her potassium was supplemented and a blood transfusion was started. She denies any shortness of breath, dizziness. She has a history of ESRD and attends dialysis Tuesday, , Tuesday. Her last dialysis was yesterday. The decision was made to admit her for further management of anemia. Of note patient was evaluated in the emergency department on July 17 after an unresponsive episode during dialysis. Time she was noted to be anemic and was transfused 1 unit. Admission was requested at that time the patient declined and left against medical advice. Review of Systems Review of Systems: Yes all other systems are reviewed and are negative Constitutional: Constitutional: Denies fever(s) Cardiovascular: Cardiovascular: Denies chest pain Respiratory: Respiratory: Denies cough Gastrointestinal: Gastrointestinal: Reports nausea and Reports vomiting [facility] Medical History (Updated 07/23/20 @ 17:19 by YOSEF Ortiz) High cholesterol History of renal dialysis HTN (hypertension) Kidney failure Multiple myeloma Pertinent family history: no history of heart disease Family history: reviewed and not pertinent Surgical History Hx of colostomy Social History Patient Tobacco Use Status: Never used Tobacco Advance Directives: Yes Advance Directives Information Provided: Yes Advance Directives on File: No Meds Allergies Allergy/AdvReac Type Severity Reaction Status Date / Time No Known Allergies Allergy Unverified 11/08/19 15:10 Active Medications: Current Medications Generic Name Dose Route Start Last Admin Trade Name Freq PRN Reason Stop Dose Admin Pharmacy Consult 1 each 07/23/20 16:08 Consult Rx Perform Med Rec MISCELLANE ONCE PRN Consult order Home Medications Medication Instructions Recorded Confirmed Last Taken Type B complex with C 20-folic acid 1 cap PO DAILY 07/17/20 07/23/20 Unknown History [Renal Caps] acyclovir 400 mg PO DAILY 07/17/20 07/23/20 Unknown History amlodipine 2.5 mg PO DAILY 07/17/20 07/23/20 07/23/20 History cholecalciferol (vitamin D3) 50 mcg PO DAILY 07/17/20 07/23/20 Unknown History sevelamer carbonate 1 tab PO TID 07/17/20 07/23/20 Unknown History simvastatin 10 mg PO BEDTIME 07/17/20 07/23/20 07/22/20 History warfarin 5 - 10 mg PO DAILY 07/17/20 07/23/20 07/23/20 History Physical Exam Vital Signs and Narrative: Vital Signs: Last Vital Signs Temp 98.7 F 07/23/20 15:36 Pulse 83 07/23/20 15:36 Resp 13 07/23/20 15:36 BP 154/70 H 07/23/20 15:36 Pulse Ox 92 07/23/20 15:36 Body Mass Index 34.3 Const: General: comfortable, no acute distress, alert, awake and tired appearing Nutritional Appearance: well nourished and overweight Orientation/consciousness: patient oriented x3 HENMT: Head: Yes normocephalic and Yes atraumatic Eyes: Sclerae: sclerae normal Chest: Chest palpation & inspection: normal inspection of the chest Resp: Other: Diminished breath sounds bilaterally no wheezes or rhonchi Effort & Inspection: normal respiratory effort and no respiratory distress Cardio: Rate: regular rate Rhythm: regular rhythm GI: Palpation (GI): Soft to palpation and nontender Neuro: General: patient oriented x3 Cranial nerves: Yes CN's II-XII intact bilaterally and Yes Bilaterally intact EOM present Extrem: Other: Left upper extremity fistula with palpable thrill; bilateral leg edema Results Labs CBC and Chem 7: 07/23/20 10:52 07/23/20 10:52 Labs: Laboratory Results - last 24 hr 07/23/20 07/23/20 07/23/20 10:41 10:52 10:52 MCV 96.5 MCH 33.5 H MCHC 34.7 RDW 16.3 H Plt Count 126 L MPV 9.2 L Immature Gran % (Auto) 0.5 H Neut % (Auto) 78.2 H Lymph % (Auto) 13.6 L [place] % (Auto) 7.5 Eos % (Auto) 0.0 Baso % (Auto) 0.2 Lymph # (Auto) 0.6 L [place] # (Auto) 0.3 Eos # (Auto) 0.0 Baso # (Auto) 0.0 Abs Immat Gran (auto) 0.02 Absolute Neuts (auto) 3.2 Absolute Nucleated RBC 0.000 Nucleated RBC % (auto) 0.0 Smear Tech's Comments VERIFIED PT 35.5 H D INR 3.0 H APTT 42.0 H D Anion Gap Estim Creat Clear Calc Estimated GFR Random Glucose Calcium Magnesium Total Bilirubin Direct Bilirubin AST ALT Alkaline Phosphatase Troponin I High Sens B-Natriuretic Peptide Total Protein Albumin Lipase COVID-19 (ETHAN) Negative COVID-[employer] [facility] See Note Blood Type Antibody Screen Crossmatch 07/23/20 07/23/20 07/23/20 10:52 10:52 10:52 MCV MCH MCHC RDW Plt Count MPV Immature Gran % (Auto) Neut % (Auto) Lymph % (Auto) [place] % (Auto) Eos % (Auto) Baso % (Auto) Lymph # (Auto) [place] # (Auto) Eos # (Auto) Baso # (Auto) Abs Immat Gran (auto) Absolute Neuts (auto) Absolute Nucleated RBC Nucleated RBC % (auto) Smear Tech's Comments PT INR APTT Anion Gap 16 Estim Creat Clear Calc 11.7 Estimated GFR 11 Random Glucose 106 Calcium 7.8 L Magnesium 1.8 Total Bilirubin 0.6 Direct Bilirubin 0.3 AST 24 ALT 11 Alkaline Phosphatase 77 D Troponin I High Sens 66.8 H* B-Natriuretic Peptide 459 H Total Protein 5.4 L Albumin 3.3 L Lipase 13 COVID-19 (ETHAN) COVID-[employer] Com Blood Type Antibody Screen Crossmatch 07/23/20 11:58 MCV MCH MCHC RDW Plt Count MPV Immature Gran % (Auto) Neut % (Auto) Lymph % (Auto) [place] % (Auto) Eos % (Auto) Baso % (Auto) Lymph # (Auto) [place] # (Auto) Eos # (Auto) Baso # (Auto) Abs Immat Gran (auto) Absolute Neuts (auto) Absolute Nucleated RBC Nucleated RBC % (auto) Smear Tech's Comments PT INR APTT Anion Gap Estim Creat Clear Calc Estimated GFR Random Glucose Calcium Magnesium Total Bilirubin Direct Bilirubin AST ALT Alkaline Phosphatase Troponin I High Sens B-Natriuretic Peptide Total Protein Albumin Lipase COVID-19 (ETHAN) COVID-19 Clin Com Blood Type O Positive Antibody Screen NEGATIVE Crossmatch See Detail Imaging Radiologist's Impressions: Impressions Abdomen/Pelvis CT 07/23/20 10:13 IMPRESSION: Bilateral renal atrophy with left hydronephrosis with no visible cortex identified. No evidence of ileus or obstruction. No free air or free fluid. Bilateral pleural effusions with bibasilar airspace disease. Cholelithiasis without evidence of acute cholecystitis. Status post colectomy with ileostomy noted without parastomal hernia. Diffuse atherosclerotic disease with calcified plaque causing stenoses at the origin of the visceral vessels. Degenerative disc disease throughout the lower thoracic and lumbar spine as described. Chest X-Ray 07/23/20 12:42 IMPRESSION: Bibasilar effusions and basilar atelectasis, greater on right. Assessment and Plan (1) Acute on chronic anemia: Status: Acute 80-year-old female with history of ESRD on hemodialysis Tuesday, , Tuesday with last dialysis yesterday, multiple myeloma with chronic anemia with history of requiring multiple blood transfusions, hypertension who presents to the emergency department with nausea and vomiting found to have acute on chronic anemia Acute on chronic anemia/symptomatic anemia History of multiple myeloma, history of ESRD -blood transfusion started in emergency department -follow CBC ESRD -nephrology consult -plan for dialysis in a.m. Bilateral pleural effusions Currently requiring 2 L of oxygen but no respiratory distress noted Does not make urine -dialysis in a.m. Nausea, vomiting CT scan of the abdomen does not show any etiology for above Symptoms seem to be improving with conservative management -continue anti emetics, supportive care Hypokalemia -replace and follow Continue baseline medications when med reconciliation has been completed Code status-full code DVT prophylaxis-Coumadin Attending-Dr. Skinner
--- NOTE | 2020-07-23 17:50 | HE.PHANOTE ---
Pharmacy Consult ? Medication Reconciliation Pharmacy has completed the medication reconciliation and the following issue requires provider intervention: the patient isn't aware of the warfarin schedule she is on. The pharmacy history claim says that she takes 5-10 mg daily. Eufemia Hickey, PharmD [phone]
--- NOTE | 2020-07-23 19:06 | PC.NURSE ---
attempted to give report rn unavilable.
--- NOTE | 2020-07-23 19:20 | PC.NURSE ---
attempted to give report to shanae ramirez. rn unavailable/refuses. will attempt again in 10 minutes.
[2020-07-23] MEDS: Atorvastatin Calcium 10 MG TABLET PO (21:35)
[2020-07-23] MEDS: 0.9 % Sodium Chloride Flush 3 ML SYRINGE IVFLUSH (21:35)
[2020-07-24] VITALS (9 sets, daily range): BP systolic 104–162; BP diastolic 60–85; PULSE 72–93; RESP 16–20; TEMP 36.1–36.8; O2SAT 94–98; BMI 34.3
[2020-07-24 06:45] LABS: INTERNATIONAL NORM RATIO 2.7 (0.9-1.1); Prothrombin Time 31.9 SEC (10.8-13.0)
[2020-07-24] MEDS: ondansetron HCL 4 MG/2 ML VIAL IVPUSH (06:45)
[2020-07-24 06:51] LABS: Basophils Percent Auto 0.5 % (0-2); Eosinophils Absolute Auto 0.1 X10*3/uL (0.0-0.4); Eosinophils Percent Auto 1.4 % (0-4); Hemoglobin 7.2 g/dl (12.0-16.0); Imm Gran Abs Auto 0.01 X10*3/uL (0.00-0.03); Imm Gran Pct Auto 0.2 % (0.0-0.4); Lymphocytes Absolute Auto 0.7 X10*3/uL (1.2-4.9); Lymphocytes Percent Auto 15.3 % (20-40); MANUAL DIFF FLAG SCAN; Mean Corpuscular HGB Conc 35.1 g/dl (31.0-35.0); Mean Corpuscular Hemoglobin 32.9 pg (27.0-33.0); Mean Corpuscular Volume 93.6 fL (80-98); Mean Platelet Volume 9.5 fL (9.4-12.3); Monocytes Absolute Auto 0.5 X10*3/uL (0.1-1.2); Monocytes Percent Auto 10.8 % (2-11); Neutrophils Absolute Auto 3.1 X10*3/uL (2.0-8.3); Neutrophils Percent Auto 71.8 % (45-73); Platelet Count 116 X10*3/uL (160-400); Red Blood Count 2.19 X10*6/uL (4.20-5.50); Red Cell Distribution Width 15.7 % (11.0-16.0); SCAN SMEAR FLAG 1; White Blood Count 4.3 X10*3/uL (4.8-10.8)
[2020-07-24 07:28] LABS: Anion Gap 14 (12-20); Blood Urea Nitrogen 40 mg/dL (9-16); Calcium 7.7 mg/dL (8.4-10.2); Carbon Dioxide 34 mmol/L (22-29); Chloride 97 mmol/L (96-108); Creatinine Clr Calc Pharmacy 9.5; Estimated Glomerular Filt Rate 9; Glucose Random 94 mg/dL (60-115); Sodium 142 mmol/L (135-145)
[2020-07-24 07:44] LABS: Hematocrit 20.5 % (37-47)
[2020-07-24 08:02] LABS: SLIDE REVIEW VERIFIED
--- NOTE | 2020-07-24 09:19 | MHC.CM.PN ---
pt lives alone in her apt in [place]. she says she has a tube carrier via [facility] 1 day a wk - mondays. she says she also has a vna for nsg and home PT for which she cannot remember the name of the agency at this time. pt also uses a walker c ambulation and goes to [facility] - t,,tue. she has a boyfriend that helps her c all her transportation needs including HD visits, if pt is dc'd home then he will provide transportation. pt tells me she was recently dc'd from [facility]. she does not want to return to if she needs STR - pending PT eval but is willing to try a different facility. dc plan is home c aforementioned svcs. vs. STR. cm to cont. to follow. cm to cont. to follow.
[2020-07-24] MEDS: amLODIPine Besylate 2.5 MG TABLET PO (09:28)
[2020-07-24] MEDS: Cholecalciferol (Vitamin D3) 25 MCG TABLET 50 MCG PO (09:28)
[2020-07-24] MEDS: Potassium Chloride Packet 20 MEQ PACKET 60 MEQ PO (09:28)
[2020-07-24] MEDS: 0.9 % Sodium Chloride Flush 3 ML SYRINGE IVFLUSH ×2 (09:28→23:38)
[2020-07-24] MEDS: Acyclovir 200 MG CAPSULE 400 MG PO (09:28)
--- NOTE | 2020-07-24 11:17 | ECG_ITS ---
Test Reason : repeat Blood Pressure : / mmHG Vent. Rate : 079 BPM Atrial Rate : 079 BPM P-R Int : 192 ms QRS Dur : 140 ms QT Int : 464 ms P-R-T Axes : 060 -84 039 degrees QTc Int : 532 ms Normal sinus rhythm Left axis deviation Right bundle branch block Abnormal ECG When compared with ECG of 23-JUL-2020 10:29, No significant changes seen Referred By: Destiny Heath Electronically Signed By:Cole Villagomez
--- NOTE | 2020-07-24 11:21 | HO.PM.IMPN ---
Subjective Subjective Date of Service: 07/24/20 <YOSEF Ortiz - Last Filed: 07/24/20 12:21> 07/24/20 <Jose Curtis MD - Last Filed: 07/24/20 18:19> Interval History: seen and examiined this morning nausea and dry heaving this morning no abdominal pain, chest pain <YOSEF Ortiz - Last Filed: 07/24/20 12:21> Review of Systems Review of Systems: Yes all other systems are reviewed and are negative <YOSEF Ortiz - Last Filed: 07/24/20 12:21> Constitutional Constitutional: Denies chills and Denies fever(s) <YOSEF Ortiz - Last Filed: 07/24/20 12:21> Cardiovascular Cardiovascular: Denies chest pain <YOSEF Ortiz Last Filed: 07/24/20 12:21> Respiratory Respiratory: Denies cough <YOSEF Ortiz - Last Filed: 07/24/20 12:21> Gastrointestinal Gastrointestinal: Denies abdominal pain <YOSEF Ortiz - Last Filed: 07/24/20 12:21> Physical Exam Vital Signs: Vital Signs: Last Vital Signs Temp 97.2 F 07/24/20 08:00 Pulse 93 07/24/20 09:28 Resp 20 07/24/20 08:00 BP 162/70 H 07/24/20 09:28 Pulse Ox 97 07/24/20 08:00 Body Mass Index 34.3 <YOSEF Ortiz - Last Filed: 07/24/20 12:21> Const: General: comfortable, no acute distress, alert, awake and tired appearing <YOSEF Ortiz Last Filed: 07/24/20 12:21> Nutritional Appearance: well nourished and overweight <YOSEF Ortiz Last Filed: 07/24/20 12:21> Orientation/consciousness: patient oriented x3 <YOSEF Ortiz Last Filed: 07/24/20 12:21> HENMT: Head: Yes normocephalic and Yes atraumatic <YOSEF Ortiz - Last Filed: 07/24/20 12:21> Eyes: Sclerae: sclerae normal <YOSEF Ortiz - Last Filed: 07/24/20 12:21> Chest: Chest palpation & inspection: normal inspection of the chest <YOSEF Ortiz - Last Filed: 07/24/20 12:21> Resp: Effort & Inspection: normal respiratory effort and no respiratory distress <YOSEF Ortiz - Last Filed: 07/24/20 12:21> Auscultation: clear to auscultation bilaterally <YOSEF Ortiz - Last Filed: 07/24/20 12:21> Cardio: Rate: regular rate <YOSEF Ortiz - Last Filed: 07/24/20 12:21> Rhythm: regular rhythm <YOSEF Ortiz - Last Filed: 07/24/20 12:21> GI: Palpation (GI): Soft to palpation and nontender <YOSEF Ortiz - Last Filed: 07/24/20 12:21> Neuro: General: patient oriented x3 <YOSEF Ortiz - Last Filed: 07/24/20 12:21> Cranial nerves: Yes CN's II-XII intact bilaterally and Yes Bilaterally intact EOM present <YOSEF Ortiz Last Filed: 07/24/20 12:21> Extrem: Other: Left upper extremity fistula with palpable thrill; bilateral leg edema <YOSEF Ortiz Last Filed: 07/24/20 12:21> Objective Data Current Medications Generic Name Dose Route Start Last Admin Trade Name Edgar PRN Reason Stop Dose Admin Acetaminophen 650 mg 07/23/20 17:31 Acetaminophen 325 Mg Tablet PO Q6H PRN Pain, Mild (Pain Scale 1-3) Acyclovir 400 mg 07/24/20 09:00 07/24/20 09:28 Acyclovir 200 Mg Capsule PO 400 mg DAILY NARCISO Administration Amlodipine Besylate 2.5 mg 07/24/20 09:00 07/24/20 09:28 Amlodipine Besylate 2.5 Mg Tablet PO 2.5 mg DAILY NARCISO Administration Protocol Atorvastatin Calcium 10 mg 07/23/20 21:00 07/23/20 21:35 Atorvastatin Calcium 10 Mg Tablet PO 10 mg BEDTIME NARCISO Administration Diphenhydramine HCl 12.5 mg 07/24/20 11:19 Diphenhydramine Hcl 50 Mg/Ml Vial IVPUSH 07/24/20 11:20 ONCE ONE Magnesium Sulfate/Dextrose 1 gm in 100 mls @ 100 mls/hr 07/24/20 11:17 IV 07/24/20 12:16 ONCE ONE Pharmacy Consult 1 each 07/23/20 16:08 Consult Rx Perform Med Rec MISCELLANE ONCE PRN Consult order Sevelamer Carbonate 800 mg 07/23/20 21:00 Sevelamer Carbonate 800 Mg Powd.Pack PO TID NARCISO Sodium Chloride 3 ml 07/24/20 00:00 07/24/20 09:28 0.9 % Sodium Chloride Flush 3 Ml Syringe IVFLUSH 3 ml QSHIFT NARCISO Administration Vitamin B Complex/Folic Acid 1 cap 07/24/20 09:00 07/24/20 09:28 B Complex W-C No.20/Folic Acid Capsule PO 1 cap DAILY NARCISO Administration Vitamin D 50 mcg 07/24/20 09:00 07/24/20 09:28 Cholecalciferol (Vitamin D3) 25 Mcg Tablet PO 50 mcg DAILY NARCISO Administration Warfarin Sodium 5 mg 07/24/20 18:00 Warfarin Sodium 5 Mg Tablet PO DAILY@1800 NARCISO <YOSEF Ortiz - Last Filed: 07/24/20 12:21> Labs CBC & Chem 7: : 07/24/20 05:22 07/24/20 05:22 <YOSEF Ortiz - Last Filed: 07/24/20 12:21> Assessment and Plan (1) Acute on chronic anemia: Status: Acute <YOSEF Ortzi - Last Filed: 07/24/20 12:21> Assessment and Plan: 80-year-old female with history of ESRD on hemodialysis Tuesday, , Tuesday with last dialysis yesterday, multiple myeloma with chronic anemia with history of requiring multiple blood transfusions, hypertension who presents to the emergency department with nausea and vomiting found to have acute on chronic anemia Acute on chronic anemia/symptomatic anemia History of multiple myeloma, history of ESRD s/p 2U rbc in ED. H/H improved somewhat, but still below baseline Should transfuse during dialysis today -follow CBC -check stool occult ESRD -nephrology consult -plan for dialysis in a.m. Bilateral pleural effusions Currently requiring 2 L of oxygen but no respiratory distress noted Does not make urine -dialysis in a.m. Nausea, vomiting still with nausea CT scan of the abdomen does not show any etiology for above -continue anti emetics, supportive care Hypokalemia -replace and follow -check magnesium -repeat EKG Elevated trop trops flat 71, 66.8 No chest pain, likely related to ESRD HTN -continue norvasc HLD -continue statin on coumadin at baseline - pt does not know why, no EKGs with afib documented. INR 2.7 today. Follow INR daily On acyclovir at baseline- pt does not know why, will continue for now Dispo: will need PT eval when feeling better Code status-full code DVT prophylaxis-Coumadin Attending-Dr. Curtis <YOSEF Ortiz - Last Filed: 07/24/20 12:21> I have seen and evaluated this patient. I have discussed the case and its management with the PA and I agree with the findings and plan as documented in the PA?s note. Has prolonged QTc and would avoid Zofran, reglan or other agents that can make it worse, try benadryl, would also give IV pepcid for gastritis, <Jose Curtis MD - Last Filed: 07/24/20 18:19>
--- NOTE | 2020-07-24 11:44 | CONS_ITS ---
DATE OF SERVICE: 07/24/2020 REASON FOR CONSULTATION: I was called to see this patient to assist in the management dialysis requirements. HISTORY OF PRESENT ILLNESS: To summarize, Antonieta is an 80-year-old woman with a history of ESRD, on maintenance hemodialysis. She undergoes dialysis at the [facility] on Tuesday, , Saturdays. She underwent dialysis on Tuesday, uneventful. She did have anemia, but asymptomatic. She comes to the hospital on 07/23/2020, because of nausea and vomiting. She was found to have hemoglobin of 5.8. For that she has been admitted and a workup has been initiated. She received 2 units packed RBCs. PAST MEDICAL HISTORY: Ongoing medical problems include history of ESRD, on maintenance hemodialysis; longstanding diabetes mellitus; multiple myeloma, and hyperlipidemia. PAST SURGICAL HISTORY: Significant for colostomy. FAMILY HISTORY: Not significant for any kidney disease. SOCIAL HISTORY: No history of smoking or alcohol abuse. ALLERGIES: NO KNOWN DRUG ALLERGIES. MEDICATIONS: At time of admission included acyclovir, amlodipine, cholecalciferol, sevelamer, simvastatin, Coumadin, and B complex. REVIEW OF SYSTEMS: Positive for nausea and vomiting with abdominal discomfort. No fever. No shortness of breath. No chest pain. No diarrhea or constipation. No urinary symptoms. No fever. All other systems were reviewed. PHYSICAL EXAMINATION: GENERAL: Today, Antonieta appears ill. She is obese, comfortable not in any distress. NECK: Supple. No JVD. VITAL SIGNS: Blood pressure 160/70, pulse 93, and temperature 98.2. HEENT: Mucosa is dry. LUNGS: Air entry equal. No significant rales. HEART: S1, S2 heard. No gallop. ABDOMEN: Soft. Mild diffuse tenderness. No rebound or guarding. Colostomy bag in place. NEUROLOGIC: Alert and awake. No asterixis. EXTREMITIES: No edema. LABORATORY DATA: Hemoglobin 5.8 at admission and 7.2 as of this morning. Platelets 116, WBC 4.3. Sodium 142, potassium , BUN 40, creatinine 4.87, and albumin 3.3. Troponin 66.8. CT abdomen at time of admission showed bilateral atrophic kidneys with left hydro. No ileus or obstruction. No free fluid. Bilateral pleural effusion, cholelithiasis, status post colectomy. IMPRESSION: An 80-year-old woman with end-stage renal disease, admitted with severe anemia and nausea and vomiting. 1. From a renal standpoint, Antonieta has been well dialyzed. She has no overt signs or symptoms of uremia. We will proceed with dialysis today and keep her on the Tuesday, , Tuesday schedule. We will remove fluid as tolerated. 2. Severe anemia. Check stool for occult blood. Agree with blood transfusion and she needs further workup if she has positive occult blood in stools. 3. Mild hypokalemia. She has already received potassium supplementation. No further need at this time. We will use K3 bath during dialysis. We will be happy to follow along with the team. Aravind Moya MD BPA/MODL / [id number]
[2020-07-24 12:12] LABS: Magnesium 1.8 mg/dL (1.6-2.6)
[2020-07-24] MEDS: Magnesium Sulfate/D5W 1 GM/100 ML PIGGYBACK IV (12:13)
[2020-07-24] MEDS: diphenhydrAMINE HCL 50 MG/ML VIAL 12.5 MG IVPUSH (12:13)
[2020-07-24 12:47] LABS: Iron 93 mcg/dL (30-160); Percent Iron Saturation 49 % (15-50); Total Iron Binding Capacity 188 mcg/dL (228-428); Unsaturated Iron Binding 95 ug/dL
[2020-07-24 13:00] LABS: OBS Int Ctl Valid YES; OBS1 POSITIVE (NEGATIVE)
[2020-07-24] MEDS: diphenhydrAMINE HCL 50 MG/ML VIAL 25 MG IVPUSH (18:28)
[2020-07-24] MEDS: Famotidine/PF 20 MG/2 ML VIAL IVPUSH (18:28)
[2020-07-24] MEDS: Atorvastatin Calcium 10 MG TABLET PO (20:01)
[2020-07-25] VITALS (11 sets, daily range): BP systolic 96–182; BP diastolic 60–97; PULSE 68–92; RESP 16–20; TEMP 35.6–36.9; O2SAT 96–100
[2020-07-25 06:54] LABS: INTERNATIONAL NORM RATIO 2.8 (0.9-1.1); Prothrombin Time 34.2 SEC (10.8-13.0)
[2020-07-25 07:00] LABS: Hematocrit 21.3 % (37-47); Hemoglobin 7.2 g/dl (12.0-16.0); Mean Corpuscular HGB Conc 33.8 g/dl (31.0-35.0); Mean Corpuscular Hemoglobin 32.3 pg (27.0-33.0); Mean Corpuscular Volume 95.5 fL (80-98); Mean Platelet Volume 9.7 fL (9.4-12.3); Platelet Count 130 X10*3/uL (160-400); Red Blood Count 2.23 X10*6/uL (4.20-5.50); Red Cell Distribution Width 15.8 % (11.0-16.0); White Blood Count 4.9 X10*3/uL (4.8-10.8)
[2020-07-25 07:26] LABS: Anion Gap 11 (12-20); Blood Urea Nitrogen 15 mg/dL (9-16); Calcium 8.3 mg/dL (8.4-10.2); Carbon Dioxide 28 mmol/L (22-29); Chloride 101 mmol/L (96-108); Creatinine Clr Calc Pharmacy 15.7; Estimated Glomerular Filt Rate 15; Glucose Random 88 mg/dL (60-115); Potassium 3.5 mmol/L (3.3-5.1); Sodium 136 mmol/L (135-145)
[2020-07-25] MEDS: amLODIPine Besylate 2.5 MG TABLET PO (09:01)
[2020-07-25] MEDS: Acyclovir 200 MG CAPSULE 400 MG PO (09:01)
[2020-07-25] MEDS: Cholecalciferol (Vitamin D3) 25 MCG TABLET 50 MCG PO (09:01)
[2020-07-25] MEDS: Famotidine/PF 20 MG/2 ML VIAL IVPUSH (09:01)
[2020-07-25] MEDS: 0.9 % Sodium Chloride Flush 3 ML SYRINGE IVFLUSH ×3 (09:02→20:39)
--- NOTE | 2020-07-25 11:51 | PM.PNNEP ---
Subjective Subjective Date of Service: 08/07/20 Interval history: Events noted Had HD yesterday no abdominal pain, chest pain s/p Transfusion Physical Exam Vital Signs: Vital Signs: Last Vital Signs Temp 97 F 07/25/20 11:06 Pulse 73 07/25/20 11:06 Resp 20 07/25/20 11:06 BP 129/72 07/25/20 11:06 Pulse Ox 96 07/25/20 11:06 Body Mass Index 34.3 Const: General: alert Neck: Neck: Yes no JVD Resp: Auscultation: clear to auscultation bilaterally Cardio: Heart sounds: no gallops and no rubs GI: Palpation (GI): Soft to palpation Neuro: Motor exam (neuro): no asterixis Objective Data Labs CBC & Chem 7: 07/30/20 05:45 07/28/20 06:49 Labs: Laboratory Results - last 24 hr 07/23/20 07/24/20 07/24/20 11:58 05:22 12:09 WBC RBC Hgb Hct MCV MCH MCHC RDW Plt Count MPV Absolute Nucleated RBC Nucleated RBC % (auto) PT INR Sodium Potassium Chloride Carbon Dioxide Anion Gap BUN Creatinine Estim Creat Clear Calc Estimated GFR Random Glucose Calcium Magnesium 1.8 Iron 93 TIBC 188 L % Saturation 49 Unsat Iron Binding 95 Stool Occult Blood POSITIVE Blood Type O Positive Antibody Screen NEGATIVE Crossmatch See Detail 07/25/20 07/25/20 07/25/20 05:09 05:09 05:09 WBC 4.9 RBC 2.23 L Hgb 7.2 L Hct 21.3 L MCV 95.5 MCH 32.3 MCHC 33.8 RDW 15.8 Plt Count 130 L MPV 9.7 Absolute Nucleated RBC 0.000 Nucleated RBC % (auto) 0.0 PT 34.2 H INR 2.8 H Sodium 136 Potassium 3.5 Chloride 101 Carbon Dioxide 28 Anion Gap 11 L BUN 15 D Creatinine 2.95 H Estim Creat Clear Calc 15.7 Estimated GFR 15 Random Glucose 88 Calcium 8.3 L D Magnesium Iron TIBC % Saturation Unsat Iron Binding Stool Occult Blood Blood Type Antibody Screen Crossmatch Assessment & Plan Assessment and plan (1) ESRD (end stage renal disease): Status: Acute Assessment and Plan: On HD TTS No s/s of uremia Next HD tomorrow Anemia Await GI evaluation Stool OB + s/p Transfusion TRansfuse PRBCs to optimize HCT Hypokalemia Stands corrected Time Spent With Patient Time: Total time spent is greater than 50% in coordination of care (as documented) at patient's floor/unit and/or counseling patient: Procedures Date of Service Date of Service: 07/25/20
--- NOTE | 2020-07-25 11:55 | P.PNIM_ITS ---
Subjective Subjective Date of Service: 07/25/20 <YOSEF Ortiz - Last Filed: 07/25/20 12:15> 07/25/20 <Jose Curtis MD - Last Filed: 07/25/20 17:49> Interval History: Seen and examined this morning No complaints this morning, observed eating breakfast <YOSEF Ortiz - Last Filed: 07/25/20 12:15> Review of Systems Review of Systems: Yes all other systems are reviewed and are negative <YOSEF Ortiz - Last Filed: 07/25/20 12:15> Constitutional Constitutional: Denies chills and Denies fever(s) <YOSEF Ortiz - Last Filed: 07/25/20 12:15> Cardiovascular Cardiovascular: Denies chest pain <YOSEF Ortiz - Last Filed: 07/25/20 12:15> Respiratory Respiratory: Denies cough <YOSEF Ortiz - Last Filed: 07/25/20 12:15> Gastrointestinal Gastrointestinal: Denies abdominal pain <YOSEF Ortiz - Last Filed: 07/25/20 12:15> Physical Exam Vital Signs: Vital Signs: Last Vital Signs Temp 97 F 07/25/20 11:06 Pulse 73 07/25/20 11:06 Resp 20 07/25/20 11:06 BP 129/72 07/25/20 11:06 Pulse Ox 96 07/25/20 11:06 Body Mass Index 34.3 <YOSEF Ortiz - Last Filed: 07/25/20 12:15> Const: General: comfortable, no acute distress, alert, awake and tired appearing <YOSEF Ortiz - Last Filed: 07/25/20 12:15> Nutritional Appearance: well nourished and overweight <YOSEF Ortiz Last Filed: 07/25/20 12:15> Orientation/consciousness: patient oriented x3 <YOSEF Ortiz Last Filed: 07/25/20 12:15> HENMT: Head: Yes normocephalic and Yes atraumatic <YOSEF Ortiz - Last Filed: 07/25/20 12:15> Eyes: Sclerae: sclerae normal <YOSEF Ortiz - Last Filed: 07/25/20 12:15> Chest: Chest palpation & inspection: normal inspection of the chest <YOSEF Ortiz Last Filed: 07/25/20 12:15> Resp: Other: Diminished breath sounds bilaterally no wheezes or rhonchi <YOSEF Vaughan - Last Filed: 07/25/20 12:15> Effort & Inspection: normal respiratory effort and no respiratory distress <YOSEF Ortiz - Last Filed: 07/25/20 12:15> Auscultation: clear to auscultation bilaterally <YOSEF Ortiz - Last Filed: 07/25/20 12:15> Cardio: Rate: regular rate <YOSEF Ortiz - Last Filed: 07/25/20 12:15> Rhythm: regular rhythm <YOSEF Ortiz - Last Filed: 07/25/20 12:15> GI: Other: colostomy LLQ <YOSEF Ortiz - Last Filed: 07/25/20 12:15> Palpation (GI): Soft to palpation and nontender <YOSEF Ortiz - Last Filed: 07/25/20 12:15> Neuro: General: patient oriented x3 <YOSEF Ortiz - Last Filed: 07/25/20 12:15> Cranial nerves: Yes CN's II-XII intact bilaterally and Yes Bilaterally intact EOM present <YOSEF Ortiz - Last Filed: 07/25/20 12:15> Extrem: Other: Left upper extremity fistula with palpable thrill; bilateral leg edema <YOSEF Ortiz Last Filed: 07/25/20 12:15> Objective Data Current Medications Generic Name Dose Route Start Last Admin Trade Name Freq PRN Reason Stop Dose Admin Acetaminophen 650 mg 07/23/20 17:31 Acetaminophen 325 Mg Tablet PO Q6H PRN Pain, Mild (Pain Scale 1-3) Acyclovir 400 mg 07/24/20 09:00 07/25/20 09:01 Acyclovir 200 Mg Capsule PO 400 mg DAILY NARCISO Administration Amlodipine Besylate 2.5 mg 07/24/20 09:00 07/25/20 09:01 Amlodipine Besylate 2.5 Mg Tablet PO 2.5 mg DAILY NARCISO Administration Protocol Atorvastatin Calcium 10 mg 07/23/20 21:00 07/24/20 20:01 Atorvastatin Calcium 10 Mg Tablet PO 10 mg BEDTIME NARCISO Administration Famotidine 20 mg 07/24/20 18:05 07/25/20 09:01 Famotidine/Pf 20 Mg/2 Ml Vial IVPUSH 20 mg DAILY NARCISO Administration Pharmacy Consult 1 each 07/23/20 16:08 Consult Rx Perform Med Rec MISCELLANE ONCE PRN Consult order Sevelamer Carbonate 800 mg 07/24/20 12:00 07/25/20 11:39 Sevelamer Carbonate 800 Mg Tablet PO 800 mg TIDWM NARCISO Administration Sodium Chloride 3 ml 07/24/20 00:00 07/25/20 09:02 0.9 % Sodium Chloride Flush 3 Ml Syringe IVFLUSH 3 ml QSHIFT NARCISO Administration Vitamin B Complex/Folic Acid 1 cap 07/24/20 09:00 07/25/20 09:01 B Complex W-C No.20/Folic Acid Capsule PO 1 cap DAILY NARCISO Administration Vitamin D 50 mcg 07/24/20 09:00 07/25/20 09:01 Cholecalciferol (Vitamin D3) 25 Mcg Tablet PO 50 mcg DAILY NARCISO Administration <YOSEF Ortiz - Last Filed: 07/25/20 12:15> Labs CBC & Chem 7: : 07/25/20 05:09 07/25/20 05:09 <YOSEF Ortiz - Last Filed: 07/25/20 12:15> Assessment and Plan (1) Acute on chronic anemia: Status: Acute <YOSEF Ortiz - Last Filed: 07/25/20 12:15> Assessment and Plan: 80-year-old female with history of ESRD on hemodialysis Tuesday, , Tuesday with last dialysis yesterday, multiple myeloma with chronic anemia with history of requiring multiple blood transfusions, hypertension who presents to the emergency department with nausea and vomiting found to have acute on chronic anemia Acute on chronic anemia/symptomatic anemia History of multiple myeloma, history of ESRD s/p 2U rbc in ED. H/H improved somewhat, but still below baseline, will transfuse 1 unit today Stool occult + -GI consult -follow CBC -coumadin on hold, INR on coumadin at baseline - unclear indication. pt does not know why, no EKGs with afib documented. INR 2.8 today. -coumadin on hold for heme + stools -Follow INR daily ESRD , , Sat. Last HD 07/24 -nephrology following -plan for dialysis in a.m. Nausea, vomiting Resolved CT scan of the abdomen does not show any etiology for above Hypokalemia Resolved after supplementation Elevated trop trops flat 71, 66.8 No chest pain, likely related to ESRD HTN -continue norvasc HLD -continue statin Dispo: PT eval for safe dispo Code status-full code DVT prophylaxis-Coumadin Attending-Dr. Curtis <YOSEF Ortiz - Last Filed: 07/25/20 12:15> I saw patient independently and discussed finding, plan and mangement with PA and I agree with above <Jose Curtis MD - Last Filed: 07/25/20 17:49>
--- NOTE | 2020-07-25 19:11 | PM.EVENT ---
Event Note Date of Service: 07/25/20 Event Note: GI Consult-Full note dictated-Hx via patient and EMR Imp: Significant anemia with Heme + stool in an 80 yo female with ESRD on HD, on Coumadin, and a reported emergency abdominal surgery in 03/2020 at [facility] for a partial colectomy with subsequent colostomy or ileostomy. However, she does not know the details of her surgery nor as to why she is on Coumadin. She is s/p 3 units PRBC's. She denies any localizing GI sx presently. She did have a negative colonoscopy with me in 2005 and reports that she has had no other colonoscopies nor upper endoscopies since then. Diff dx: Chronic blood loss due to AVM's, silent ulcer disease and/or gastritis, or upper or lower GI neoplasm, with an exacerbation of blood loss with chronic Coumadin use. Rec: Will try to obtain records of her surgery from [facility]. Change to po PPI to empirically treat any potential UGI source of bleeding. F/U labs in AM. 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 I did mention to her the potential need for upper endo and colonoscopy via stoma. I advised her that I could do these on Tuesday, 07/28. However, she reports that she wants to think about it first . In the meantime I will hopefully be able to obtain her records from [facility] for my review. Please let me know if the patient definitively decides about the GI procedures one way or the other in the meantime. Thanks very much
[2020-07-25] MEDS: Atorvastatin Calcium 10 MG TABLET PO (20:39)
[2020-07-25] MEDS: Omeprazole 20 MG CAPSULE.DR PO (20:39)
--- NOTE | 2020-07-25 23:08 | CONS_ITS ---
DATE OF SERVICE: 07/25/2020 REASON FOR CONSULTATION: Anemia and heme-positive stool. HISTORY OF PRESENT ILLNESS: This has been obtained from the patient and the medical record. The patient is an 80-year-old female with underlying history of chronic renal failure, on hemodialysis, who was admitted here with significant anemia requiring transfusions. She was found to have heme-positive stool. The patient describes that she was at [facility] in March and underwent emergency surgery for some type of partial colectomy with a subsequent colostomy. She reports that this was not for cancer, but it is not sure why it was done. In reviewing the record, I did perform a negative colonoscopy on her in 2005. She has not had any colonoscopy since that time by her report. She denies any significant upper GI symptoms such as heartburn nor dysphagia. She denies any abdominal pain. She reports that the stool in her colostomy has been brown without any sign of melena nor hematochezia. In reviewing the medical record, she has been anemic as far back as May 27 with a hemoglobin of 7.3. Her hemoglobin dropped to 6.3 in mid May. When she came in on this admission, her hemoglobin was as low as 5.8. She did receive 3 units of blood since admission. She has been tolerating her diet here. She reports that her appetite is fairly good. She has been on Coumadin, but is not really sure why. She thinks this has been since the surgery she had in March at [facility]. She also takes an aspirin every day. She denies using any other NSAIDs. She does not smoke nor use any alcohol. MEDICATIONS: Here include acetaminophen, amlodipine, atorvastatin, vitamins, vitamin D, diphenhydramine, famotidine, magnesium, Zofran, sevelamer. PAST MEDICAL HISTORY: Colostomy with partial colectomy at [facility]. Bilateral knee replacements. Renal failure, for which she is on hemodialysis. Hypertension. Hyperlipidemia. She is on Coumadin, but unclear reasons as to why she is on it. She denies history of AK, diabetes, stroke, nor lung disease. She does have multiple myeloma according to the medical record. SOCIAL HISTORY: She reports that she lives by herself. As above. FAMILY HISTORY: Noncontributory. REVIEW OF SYSTEMS: CONSTITUTIONAL: She has been feeling weak at home. SKIN: No rash. No pruritus. CARDIAC: No chest pain. PULMONARY: No cough. No hemoptysis. GI: As above. PHYSICAL EXAMINATION: GENERAL: The patient is a pleasant, alert, comfortable-appearing female. She is sitting up eating dinner. HEENT: Anicteric sclerae. NECK: Supple. CHEST: Clear. CARDIAC: Normal S1, S2. ABDOMEN: Soft, nondistended, and nontender. LABORATORY DATA: Laboratories as above. Most recent CBC from today showed a white blood cell count of 4.9, hemoglobin 7.2, MCV 96, platelets 130,000. PT was 34.2 with INR 2.8 today. Normal electrolytes with a BUN of 15 and creatinine 2.95 today. On July 24, she had an iron of 93, TIBC 188, and iron saturation of 49%. She had a normal liver profile on July 23. Lipase was normal on July 23. Stool was heme positive on July 24. She did have a CAT scan of the abdomen and pelvis done on July 23 that describes no evidence of any bowel obstruction nor hernia. She appears to have had a hemicolectomy. She does have some gallstones. There is no evidence of cholecystitis. IMPRESSION: The patient is an 80-year-old female with underlying chronic renal failure, on dialysis, presenting with significant anemia over at least the past couple of months, but it looks like it is dating back even further. She has required 3 units of blood on this admission. She is not having any particular gastrointestinal symptoms. Her only colonoscopy on record is that of one in 2005, which was negative. Given the fact that she is heme-positive, has been on Coumadin at home, and has underlying renal failure, makes the differential diagnosis quite broad as far as the source of bleeding. She may very well have some silent ulcer disease and/or gastritis. She may have angiodysplasias. Gastrointestinal neoplasm is certainly in the differential diagnosis as well. At this point, ideally, she should undergo both upper endoscopy and colonoscopy if that is anatomically possible depending upon the type of surgery she had. I will attempt to obtain records from [facility] in regard to the surgery several months ago. I did talk to her today about having her undergo upper endoscopy and possible colonoscopy if her anatomy allows that. She advised me that she wants to think about it. Full consent has been obtained from her for the procedures, in the event we do proceed with them, including risks of bleeding and perforation. They will be done with monitored anesthesia care. In the meantime, I would treat her empirically with oral PPI. I will continue to follow the hemoglobin. It will be important to see why she is on Coumadin, and if possible, perhaps stop it if there is no definitive indication for it. If indeed she had surgery several months ago, she may have had some type of blood clot that prompted the initiation of Coumadin at that time. If we are to proceed with an upper endoscopy and possible colonoscopy, we could do those on Tuesday, July 28. Again, the patient wants to think about this, and I will check back with her over the weekend. Thank you for this consultation. MD LEXII Ibrahim/ELIJAH / [id number]
[2020-07-26 04:00] VITALS: BP 128/64; PULSE 80; RESP 18; TEMP 36.7; O2SAT 99
[2020-07-26] MEDS: Omeprazole 20 MG CAPSULE.DR PO (05:42)
[2020-07-26 06:52] VITALS: BP 130/76; PULSE 73; RESP 18; TEMP 35.8; O2SAT 98
[2020-07-26 07:17] LABS: MANUAL DIFF FLAG NO
[2020-07-26 07:25] LABS: Basophils Percent Auto 0.6 % (0-2); Eosinophils Absolute Auto 0.3 X10*3/uL (0.0-0.4); Eosinophils Percent Auto 4.8 % (0-4); Hematocrit 25.5 % (37-47); Hemoglobin 8.8 g/dl (12.0-16.0); Imm Gran Abs Auto 0.01 X10*3/uL (0.00-0.03); Imm Gran Pct Auto 0.2 % (0.0-0.4); Lymphocytes Absolute Auto 0.7 X10*3/uL (1.2-4.9); Mean Corpuscular HGB Conc 34.5 g/dl (31.0-35.0); Mean Corpuscular Hemoglobin 32.8 pg (27.0-33.0); Mean Corpuscular Volume 95.1 fL (80-98); Mean Platelet Volume 9.6 fL (9.4-12.3); Monocytes Absolute Auto 0.7 X10*3/uL (0.1-1.2); Monocytes Percent Auto 12.4 % (2-11); Neutrophils Absolute Auto 3.6 X10*3/uL (2.0-8.3); Platelet Count 121 X10*3/uL (160-400); Red Blood Count 2.68 X10*6/uL (4.20-5.50); Red Cell Distribution Width 15.3 % (11.0-16.0); White Blood Count 5.2 X10*3/uL (4.8-10.8)
[2020-07-26 07:29] LABS: INTERNATIONAL NORM RATIO 1.7 (0.9-1.1); Prothrombin Time 20.8 SEC (10.8-13.0)
[2020-07-26] MEDS: Cholecalciferol (Vitamin D3) 25 MCG TABLET 50 MCG PO (07:58)
[2020-07-26] MEDS: 0.9 % Sodium Chloride Flush 3 ML SYRINGE IVFLUSH ×3 (07:59→20:10)
[2020-07-26] MEDS: amLODIPine Besylate 2.5 MG TABLET PO (07:59)
[2020-07-26 08:15] LABS: Blood Urea Nitrogen 28 mg/dL (9-16); Calcium 7.8 mg/dL (8.4-10.2); Glucose Random 84 mg/dL (60-115)
[2020-07-26 08:51] LABS: Anion Gap 16 (12-20); Carbon Dioxide 22 mmol/L (22-29); Chloride 100 mmol/L (96-108); Estimated Glomerular Filt Rate 10; Potassium 4.4 mmol/L (3.3-5.1); Sodium 134 mmol/L (135-145)
[2020-07-26 09:18] LABS: INTERNATIONAL NORM RATIO 1.7 (0.9-1.1); Prothrombin Time 19.9 SEC (10.8-13.0)
--- NOTE | 2020-07-26 13:51 | HO.PM.IMPN ---
Subjective Subjective Date of Service: 07/26/20 Interval History: no abd pain no melena or hematochezia HD today Physical Exam Vital Signs: Vital Signs: Last Vital Signs Temp 96.5 F L 07/26/20 06:52 Pulse 73 07/26/20 06:52 Resp 18 07/26/20 06:52 BP 130/76 07/26/20 06:52 Pulse Ox 98 07/26/20 06:52 Body Mass Index 34.3 Gen: in no acute distress HEENT: sclera anicteric, moist mucus membranes Neck: supple Lungs: clear to auscultation bilaterally Heart: regular rate and rhythm, no murmurs Abd: soft, non-tender, non-distended Ext: LUE fistula with thrill, bilateral leg edema 1+ Skin: warm/well-perfused Neuro: alert and oriented x3, no focal findings Psych: appropriate affect Objective Data Current Medications Generic Name Dose Route Start Last Admin Trade Name Freq PRN Reason Stop Dose Admin Acetaminophen 650 mg 07/23/20 17:31 Acetaminophen 325 Mg Tablet PO Q6H PRN Pain, Mild (Pain Scale 1-3) Amlodipine Besylate 2.5 mg 07/24/20 09:00 07/26/20 07:59 Amlodipine Besylate 2.5 Mg Tablet PO 2.5 mg DAILY NARCISO Administration Protocol Atorvastatin Calcium 10 mg 07/23/20 21:00 07/25/20 20:39 Atorvastatin Calcium 10 Mg Tablet PO 10 mg BEDTIME NARCISO Administration Omeprazole 20 mg 07/25/20 19:10 07/26/20 05:42 Omeprazole 20 Mg Capsule. PO 20 mg DAILY@0630 [facility] Administration Pharmacy Consult 1 each 07/23/20 16:08 Consult Rx Perform Med Rec MISCELLANE ONCE PRN Consult order Sevelamer Carbonate 800 mg 07/24/20 12:00 07/26/20 13:19 Sevelamer Carbonate 800 Mg Tablet PO 800 mg TIDWM NARCISO Administration Sodium Chloride 3 ml 07/24/20 00:00 07/26/20 07:59 0.9 % Sodium Chloride Flush 3 Ml Syringe IVFLUSH 3 ml QSHIFT NARCISO Administration Vitamin B Complex/Folic Acid 1 cap 07/24/20 09:00 07/26/20 07:59 B Complex W-C No.20/Folic Acid Capsule PO 1 cap DAILY NARCISO Administration Vitamin D 50 mcg 07/24/20 09:00 07/26/20 07:58 Cholecalciferol (Vitamin D3) 25 Mcg Tablet PO 50 mcg DAILY NARCISO Administration Labs CBC & Chem 7: 07/26/20 05:56 07/26/20 05:57 Labs: Laboratory Results - last 24 hr 07/23/20 07/26/20 07/26/20 11:58 05:56 05:56 WBC 5.2 RBC 2.68 L D Hgb 8.8 L D Hct 25.5 L MCV 95.1 MCH 32.8 MCHC 34.5 RDW 15.3 Plt Count 121 L MPV 9.6 Immature Gran % (Auto) 0.2 Neut % (Auto) 68.0 Lymph % (Auto) 14.0 L [place] % (Auto) 12.4 H Eos % (Auto) 4.8 H Baso % (Auto) 0.6 Lymph # (Auto) 0.7 L [place] # (Auto) 0.7 Eos # (Auto) 0.3 Baso # (Auto) 0.0 Abs Immat Gran (auto) 0.01 Absolute Neuts (auto) 3.6 Absolute Nucleated RBC 0.000 Nucleated RBC % (auto) 0.0 PT 20.8 H D INR 1.7 H Sodium Potassium Chloride Carbon Dioxide Anion Gap BUN Creatinine Estim Creat Clear Calc Estimated GFR Random Glucose Calcium Crossmatch See Detail 07/26/20 07/26/20 05:57 07:50 WBC RBC Hgb Hct MCV MCH MCHC RDW Plt Count MPV Immature Gran % (Auto) Neut % (Auto) Lymph % (Auto) [place] % (Auto) Eos % (Auto) Baso % (Auto) Lymph # (Auto) [place] # (Auto) Eos # (Auto) Baso # (Auto) Abs Immat Gran (auto) Absolute Neuts (auto) Absolute Nucleated RBC Nucleated RBC % (auto) PT 19.9 H INR 1.7 H Sodium 134 L Potassium 4.4 D Chloride 100 Carbon Dioxide 22 Anion Gap 16 BUN 28 H D Creatinine 4.22 H* Estim Creat Clear Calc 11.0 Estimated GFR 10 Random Glucose 84 Calcium 7.8 L D Crossmatch Assessment and Plan (1) Acute on chronic anemia: Status: Acute Assessment and Plan: hospital d#4 80yo F with ESRD on HD TuThSa, multiple myeloma with chronic txf-dep anemia, HTN admitted for worsening symptomatic anemia # acute/chronic anemia # FOBT+ - transfused 2u pRBCs 07/23, 1u pRBCs 07/25, Hb now >8 - GI consult done by Dr Malloy, plan EGD/C-scope 07/28. Last C-scope 2005. ?Partial colectomy at [facility] in [place]- records requested - hold warfarin, monitor CBC # anticoagulated with warfarin - unclear indication; will try to get records from [facility]- requested - monitor INR daily- warfarin held for FOBT+ stools # ESRD on HD - continue HD as per home sched TuThSa # N/V - resolved # hypoK - repleted, resolved # troponin elevation - flat, asymptomatic; likely due to ESRD # HTN - continue amlodipine # HLD - continue statin # dispo - plan home with VNA # VTE ppx - SCDs, holding warfarin due to question of GI bleed
[2020-07-26] MEDS: Acetaminophen 325 MG TABLET 650 MG PO (14:43)
--- NOTE | 2020-07-26 15:11 | P.PNNP_ITS ---
Subjective Subjective Date of Service: 07/26/20 Interval history: Events noted. Had HD today. All recent data reviewed Physical Exam Vital Signs: Vital Signs: Last Vital Signs Temp 96.5 F L 07/26/20 06:52 Pulse 73 07/26/20 06:52 Resp 18 07/26/20 06:52 BP 130/76 07/26/20 06:52 Pulse Ox 98 07/26/20 06:52 Body Mass Index 34.3 Const: General: no acute distress Eyes: EOM: EOMs intact bilaterally Neck: Neck: Yes supple Resp: Auscultation: diminished lung sounds Cardio: Jugular venous distension: no JVD GI: Palpation (GI): Soft to palpation Neuro: General: moves all extremities Objective Data Labs CBC & Chem 7: 07/26/20 05:56 07/26/20 05:57 Labs: Laboratory Results - last 24 hr 07/26/20 07/26/20 07/26/20 05:56 05:56 05:57 WBC 5.2 RBC 2.68 L D Hgb 8.8 L D Hct 25.5 L MCV 95.1 MCH 32.8 MCHC 34.5 RDW 15.3 Plt Count 121 L MPV 9.6 Immature Gran % (Auto) 0.2 Neut % (Auto) 68.0 Lymph % (Auto) 14.0 L [place] % (Auto) 12.4 H Eos % (Auto) 4.8 H Baso % (Auto) 0.6 Lymph # (Auto) 0.7 L [place] # (Auto) 0.7 Eos # (Auto) 0.3 Baso # (Auto) 0.0 Abs Immat Gran (auto) 0.01 Absolute Neuts (auto) 3.6 Absolute Nucleated RBC 0.000 Nucleated RBC % (auto) 0.0 PT 20.8 H D INR 1.7 H Sodium 134 L Potassium 4.4 D Chloride 100 Carbon Dioxide 22 Anion Gap 16 BUN 28 H D Creatinine 4.22 H* Estim Creat Clear Calc 11.0 Estimated GFR 10 Random Glucose 84 Calcium 7.8 L D 07/26/20 07:50 WBC RBC Hgb Hct MCV MCH MCHC RDW Plt Count MPV Immature Gran % (Auto) Neut % (Auto) Lymph % (Auto) [place] % (Auto) Eos % (Auto) Baso % (Auto) Lymph # (Auto) [place] # (Auto) Eos # (Auto) Baso # (Auto) Abs Immat Gran (auto) Absolute Neuts (auto) Absolute Nucleated RBC Nucleated RBC % (auto) PT 19.9 H INR 1.7 H Sodium Potassium Chloride Carbon Dioxide Anion Gap BUN Creatinine Estim Creat Clear Calc Estimated GFR Random Glucose Calcium Assessment & Plan Assessment and plan (1) ESRD (end stage renal disease): Status: Acute Assessment and Plan: Usually gets HD on TTS Renal Diet; Phos binders with meals Had transfusion ; Getting Endoscopy after weekend Continued volume optimization on HD Procrit 61046 U TTS; Shall F/U Time Spent With Patient Time: Total time spent is greater than 50% in coordination of care (as documented) at patient's floor/unit and/or counseling patient: Procedures Date of Service Date of Service: 07/26/20
[2020-07-26 15:49] VITALS: BP 122/62; PULSE 78; RESP 18; TEMP 36.7; O2SAT 99
--- NOTE | 2020-07-26 18:03 | P.PNGI_ITS ---
Subjective Subjective Date of Service: 07/26/20 Interval History: Patient is eating dinner and visiting with her granddaughter, Billie. She feels OK . Denies abdominal pain, N/V, or signs of bleeding. She feels better overall after all of the transfusions. Critical Care Time (minutes): 0 Physical Exam Vital Signs: Vital Signs: Last Vital Signs Temp 98.0 F 07/26/20 15:49 Pulse 78 07/26/20 15:49 Resp 18 07/26/20 15:49 BP 122/62 07/26/20 15:49 Pulse Ox 99 07/26/20 15:49 Body Mass Index 34.3 Const: General: cooperative, comfortable, no acute distress and well developed Eyes: Sclerae: sclerae normal GI: Other: Nontender Inspection: Yes normal to inspection Palpation (GI): Soft to palpation and Guarding due to palpation present (GI) Objective Data Labs CBC & Chem 7: 07/26/20 05:56 07/26/20 05:57 Labs: Laboratory Results - last 24 hr 07/26/20 07/26/20 07/26/20 05:56 05:56 05:57 WBC 5.2 RBC 2.68 L D Hgb 8.8 L D Hct 25.5 L MCV 95.1 MCH 32.8 MCHC 34.5 RDW 15.3 Plt Count 121 L MPV 9.6 Immature Gran % (Auto) 0.2 Neut % (Auto) 68.0 Lymph % (Auto) 14.0 L [place] % (Auto) 12.4 H Eos % (Auto) 4.8 H Baso % (Auto) 0.6 Lymph # (Auto) 0.7 L [place] # (Auto) 0.7 Eos # (Auto) 0.3 Baso # (Auto) 0.0 Abs Immat Gran (auto) 0.01 Absolute Neuts (auto) 3.6 Absolute Nucleated RBC 0.000 Nucleated RBC % (auto) 0.0 PT 20.8 H D INR 1.7 H Sodium 134 L Potassium 4.4 D Chloride 100 Carbon Dioxide 22 Anion Gap 16 BUN 28 H D Creatinine 4.22 H* Estim Creat Clear Calc 11.0 Estimated GFR 10 Random Glucose 84 Calcium 7.8 L D 07/26/20 07:50 WBC RBC Hgb Hct MCV MCH MCHC RDW Plt Count MPV Immature Gran % (Auto) Neut % (Auto) Lymph % (Auto) [place] % (Auto) Eos % (Auto) Baso % (Auto) Lymph # (Auto) [place] # (Auto) Eos # (Auto) Baso # (Auto) Abs Immat Gran (auto) Absolute Neuts (auto) Absolute Nucleated RBC Nucleated RBC % (auto) PT 19.9 H INR 1.7 H Sodium Potassium Chloride Carbon Dioxide Anion Gap BUN Creatinine Estim Creat Clear Calc Estimated GFR Random Glucose Calcium Progress Note: A&P Assessment and plan (1) Acute on chronic anemia: Status: Acute Fall Risk Details Current Medications: Current Medications Generic Name Dose Route Start Last Admin Trade Name Freq PRN Reason Stop Dose Admin Acetaminophen 650 mg 07/23/20 17:31 07/26/20 14:43 Acetaminophen 325 Mg Tablet PO 650 mg Q6H PRN Administration Pain, Mild (Pain Scale 1-3) Amlodipine Besylate 2.5 mg 07/24/20 09:00 07/26/20 07:59 Amlodipine Besylate 2.5 Mg Tablet PO 2.5 mg DAILY NARCISO Administration Protocol Atorvastatin Calcium 10 mg 07/23/20 21:00 07/25/20 20:39 Atorvastatin Calcium 10 Mg Tablet PO 10 mg BEDTIME NARCISO Administration Omeprazole 20 mg 07/25/20 19:10 07/26/20 05:42 Omeprazole 20 Mg Capsule. PO 20 mg DAILY@0630 [facility] Administration Pharmacy Consult 1 each 07/23/20 16:08 Consult Rx Perform Med Rec MISCELLANE ONCE PRN Consult order Sevelamer Carbonate 800 mg 07/24/20 12:00 07/26/20 17:23 Sevelamer Carbonate 800 Mg Tablet PO 800 mg TIDWM NARCISO Administration Sodium Chloride 3 ml 07/24/20 00:00 07/26/20 16:51 0.9 % Sodium Chloride Flush 3 Ml Syringe IVFLUSH 3 ml QSHIFT NARCISO Administration Vitamin B Complex/Folic Acid 1 cap 07/24/20 09:00 07/26/20 07:59 B Complex W-C No.20/Folic Acid Capsule PO 1 cap DAILY NARCISO Administration Vitamin D 50 mcg 07/24/20 09:00 07/26/20 07:58 Cholecalciferol (Vitamin D3) 25 Mcg Tablet PO 50 mcg DAILY NARCISO Administration Time Spent With Patient Time: Total time spent is greater than 50% in coordination of care (as documented) at patient's floor/unit and/or counseling patient: Time with patient: 15 - 24 minutes Procedures Date of Service Date of Service: 07/26/20
--- NOTE | 2020-07-26 18:03 | MHC.SHP ---
Pre-Procedural Eval Section A The patient is an INPATIENT: Yes The History & Physical has been completed within 30 days and I have reviewed it.: Yes Section B Chief Complaint: Anemia, Hypokalemia Allergies: Allergies Allergy/AdvReac Type Severity Reaction Status Date / Time No Known Allergies Allergy Unverified 11/08/19 15:10 Plan I have reviewed the history and physical and performed a pertinent physical examination on my patient. No changes have occurred unless specified.
[2020-07-26 20:00] VITALS: BP 120/65; PULSE 75; RESP 18; TEMP 36.7; O2SAT 98
[2020-07-26] MEDS: Atorvastatin Calcium 10 MG TABLET PO (20:10)
[2020-07-26 23:42] VITALS: BP 138/70; PULSE 76; RESP 16; TEMP 36.9; O2SAT 98
[2020-07-27 03:02] VITALS: BP 137/73; PULSE 74; RESP 18; TEMP 36.8; O2SAT 98
[2020-07-27] MEDS: Omeprazole 20 MG CAPSULE.DR PO (05:34)
[2020-07-27 06:51] VITALS: BP 148/72; PULSE 82; RESP 20; TEMP 36.6; O2SAT 96
[2020-07-27] MEDS: amLODIPine Besylate 2.5 MG TABLET PO (08:06)
[2020-07-27] MEDS: Cholecalciferol (Vitamin D3) 25 MCG TABLET 50 MCG PO (08:07)
[2020-07-27 08:42] LABS: INTERNATIONAL NORM RATIO 1.2 (0.9-1.1); Prothrombin Time 14.3 SEC (10.8-13.0)
[2020-07-27 08:53] LABS: Anion Gap 12 (12-20); Blood Urea Nitrogen 17 mg/dL (9-16); Calcium 7.8 mg/dL (8.4-10.2); Carbon Dioxide 25 mmol/L (22-29); Chloride 101 mmol/L (96-108); Creatinine Clr Calc Pharmacy 14.2; Estimated Glomerular Filt Rate 14; Glucose Random 85 mg/dL (60-115); Potassium 3.9 mmol/L (3.3-5.1); Sodium 134 mmol/L (135-145)
[2020-07-27] MEDS: 0.9 % Sodium Chloride Flush 3 ML SYRINGE IVFLUSH ×2 (10:21→15:48)
[2020-07-27 11:04] VITALS: BP 145/64; PULSE 75; RESP 20; TEMP 36.1; O2SAT 99
--- NOTE | 2020-07-27 12:31 | P.PNIM_ITS ---
Subjective Subjective Date of Service: 07/27/20 Interval History: Had HD yesterday. Agrees to EGD/C-scope tomorrow. Denies abd pain, melena, or hematochezia. Physical Exam Vital Signs: Vital Signs: Last Vital Signs Temp 97 F 07/27/20 11:04 Pulse 75 07/27/20 11:04 Resp 20 07/27/20 11:04 BP 145/64 H 07/27/20 11:04 Pulse Ox 99 07/27/20 11:04 Body Mass Index 34.3 Gen: in no acute distress HEENT: pale mucosa Neck: supple Lungs: clear to auscultation bilaterally Heart: regular rate and rhythm, no murmurs Abd: soft, non-tender, non-distended Ext: LUE fistula with thrill, bilateral leg edema 1+ Skin: warm/well-perfused Neuro: alert and oriented x3, no focal findings Psych: appropriate affect Objective Data Current Medications Generic Name Dose Route Start Last Admin Trade Name Freq PRN Reason Stop Dose Admin Acetaminophen 650 mg 07/23/20 17:31 07/26/20 14:43 Acetaminophen 325 Mg Tablet PO 650 mg Q6H PRN Administration Pain, Mild (Pain Scale 1-3) Amlodipine Besylate 2.5 mg 07/24/20 09:00 07/27/20 08:06 Amlodipine Besylate 2.5 Mg Tablet PO 2.5 mg DAILY [facility] Administration Protocol Atorvastatin Calcium 10 mg 07/23/20 21:00 07/26/20 20:10 Atorvastatin Calcium 10 Mg Tablet PO 10 mg BEDTIME NARCISO Administration Omeprazole 20 mg 07/25/20 19:10 07/27/20 05:34 Omeprazole 20 Mg Capsule. PO 20 mg DAILY@0630 [facility] Administration Pharmacy Consult 1 each 07/23/20 16:08 Consult Rx Perform Med Rec MISCELLANE ONCE PRN Consult order Sevelamer Carbonate 800 mg 07/24/20 12:00 07/27/20 08:06 Sevelamer Carbonate 800 Mg Tablet PO 800 mg TIDWM [facility] Administration Sodium Chloride 3 ml 07/24/20 00:00 07/27/20 10:21 0.9 % Sodium Chloride Flush 3 Ml Syringe IVFLUSH 3 ml QSHIFT [facility] Administration Vitamin B Complex/Folic Acid 1 cap 07/24/20 09:00 07/27/20 08:06 B Complex W-C No.20/Folic Acid Capsule PO 1 cap DAILY NARCISO Administration Vitamin D 50 mcg 07/24/20 09:00 07/27/20 08:07 Cholecalciferol (Vitamin D3) 25 Mcg Tablet PO 50 mcg DAILY NARCISO Administration Labs CBC & Chem 7: 07/26/20 05:56 07/27/20 07:53 Labs: Laboratory Results - last 24 hr 07/27/20 07/27/20 07:53 07:53 PT 14.3 H D INR 1.2 H Sodium 134 L Potassium 3.9 Chloride 101 Carbon Dioxide 25 Anion Gap 12 BUN 17 H Creatinine 3.26 H Estim Creat Clear Calc 14.2 Estimated GFR 14 Random Glucose 85 Calcium 7.8 L Assessment and Plan (1) Acute on chronic anemia: Status: Acute Assessment and Plan: hospital d#5 80yo F with ESRD on HD TuThSa, multiple myeloma with chronic transfusion- dependent anemia, HTN admitted for worsening symptomatic anemia # acute/chronic anemia # FOBT+ - transfused 2u pRBCs /, 1u pRBCs /, Hb now >8 - GI consult done by Dr Malloy, plan EGD/C-scope tomorrow- clear liquids today, bowel prep tonight, NPO p midnight. Last C-scope 2005. ?Partial colectomy at [facility] in [place]- records requested - held warfarin, continue to monitor CBC # anticoagulated with warfarin - unclear indication; will try to get records from [facility]- requested a 3rd time - monitor INR daily- warfarin held for FOBT+ stools # ESRD on HD - continue HD as per home sched TuTa # N/V - resolved # hypoK - repleted, resolved # troponin elevation - flat, asymptomatic; likely due to ESRD # HTN - continue amlodipine # HLD - continue statin # dispo - plan home with VNA # VTE ppx - SCDs, holding warfarin due to question of GI bleed I left a message for the pt's friend David Beverly to call back for an update.
[2020-07-27 15:34] VITALS: BP 136/63; PULSE 74; RESP 18; TEMP 37.4; O2SAT 97
--- NOTE | 2020-07-27 15:46 | PM.PNNEP ---
Subjective Subjective Date of Service: 07/27/20 Interval history: Seen today. Events noted. All recent data reviewed. For Endoscopy tomorrow Physical Exam Vital Signs: Vital Signs: Last Vital Signs Temp 99.3 F 07/27/20 15:34 Pulse 74 07/27/20 15:34 Resp 18 07/27/20 15:34 BP 136/63 07/27/20 15:34 Pulse Ox 97 07/27/20 15:34 Body Mass Index 34.3 Const: General: no acute distress Orientation/consciousness: patient oriented x3 Eyes: EOM: EOMs intact bilaterally Neck: Neck: Yes supple Resp: Auscultation: diminished lung sounds Cardio: Jugular venous distension: no JVD GI: Palpation (GI): Soft to palpation Neuro: General: patient oriented x3 and moves all extremities Objective Data Labs CBC & Chem 7: 07/26/20 05:56 07/27/20 07:53 Labs: Laboratory Results - last 24 hr 07/27/20 07/27/20 07:53 07:53 PT 14.3 H D INR 1.2 H Sodium 134 L Potassium 3.9 Chloride 101 Carbon Dioxide 25 Anion Gap 12 BUN 17 H Creatinine 3.26 H Estim Creat Clear Calc 14.2 Estimated GFR 14 Random Glucose 85 Calcium 7.8 L Assessment & Plan Assessment and plan (1) ESRD (end stage renal disease): Status: Acute Assessment and Plan: Usually gets HD on TTS Renal Diet; Phos binders with meals Had transfusion ; Getting Endoscopy tomorrow Continued volume optimization on HD Procrit 14715 U TTS; Shall F/U Time Spent With Patient Time: Total time spent is greater than 50% in coordination of care (as documented) at patient's floor/unit and/or counseling patient: Procedures Date of Service Date of Service: 07/27/20
[2020-07-27 19:10] VITALS: BP 138/63; PULSE 83; RESP 18; TEMP 37.4; O2SAT 98
[2020-07-27] MEDS: Atorvastatin Calcium 10 MG TABLET PO (20:40)
[2020-07-28] VITALS (11 sets, daily range): BP systolic 105–149; BP diastolic 52–83; PULSE 64–80; RESP 18–22; TEMP 36.1–37.2; O2SAT 96–100
[2020-07-28] MEDS: 0.9 % Sodium Chloride Flush 3 ML SYRINGE IVFLUSH ×4 (00:29→20:44)
[2020-07-28 07:33] LABS: Basophils Percent Auto 0.5 % (0-2); Eosinophils Absolute Auto 0.1 X10*3/uL (0.0-0.4); Hematocrit 25.9 % (37-47); Hemoglobin 8.9 g/dl (12.0-16.0); Imm Gran Abs Auto 0.01 X10*3/uL (0.00-0.03); Imm Gran Pct Auto 0.2 % (0.0-0.4); Lymphocytes Absolute Auto 0.7 X10*3/uL (1.2-4.9); Lymphocytes Percent Auto 16.3 % (20-40); MANUAL DIFF FLAG SCAN; Mean Corpuscular HGB Conc 34.4 g/dl (31.0-35.0); Mean Corpuscular Volume 95.9 fL (80-98); Mean Platelet Volume 9.5 fL (9.4-12.3); Monocytes Absolute Auto 0.7 X10*3/uL (0.1-1.2); Neutrophils Absolute Auto 2.6 X10*3/uL (2.0-8.3); Platelet Count 119 X10*3/uL (160-400); Red Cell Distribution Width 14.9 % (11.0-16.0); SCAN SMEAR FLAG 1; White Blood Count 4.1 X10*3/uL (4.8-10.8)
[2020-07-28 07:45] LABS: Prothrombin Time 12.2 SEC (10.8-13.0)
[2020-07-28 08:10] LABS: SLIDE REVIEW VERIFIED
[2020-07-28 08:34] LABS: Anion Gap 13 (12-20); Blood Urea Nitrogen 30 mg/dL (9-16); Calcium 7.7 mg/dL (8.4-10.2); Carbon Dioxide 21 mmol/L (22-29); Chloride 101 mmol/L (96-108); Glucose Fasting 78 mg/dL (60-99); Potassium 3.8 mmol/L (3.3-5.1); Sodium 131 mmol/L (135-145)
[2020-07-28] MEDS: Cholecalciferol (Vitamin D3) 25 MCG TABLET 50 MCG PO (08:34)
[2020-07-28] MEDS: amLODIPine Besylate 2.5 MG TABLET PO (08:34)
[2020-07-28 08:42] LABS: Creatinine Clr Calc Pharmacy 10.6; Estimated Glomerular Filt Rate 10
[2020-07-28] MEDS: Acetaminophen 325 MG TABLET 650 MG PO (10:46)
--- NOTE | 2020-07-28 11:46 | P.PNIM_ITS ---
Subjective Subjective Date of Service: 07/28/20 Interval History: Complaining of lower back pain,feels its related to being in bed,is npo for upper endo and colonoscopy. General no headache, no dizziness, no fever chills. CVS no chest pain, no palpitation. Respiratory no cough no sob. Gastrointestinal no nausea, no vomiting, no abdominal pain Physical Exam Vital Signs: Vital Signs: Last Vital Signs Temp 98.2 F 07/28/20 07:37 Pulse 71 07/28/20 07:37 Resp 20 07/28/20 07:37 BP 146/67 H 07/28/20 07:37 Pulse Ox 99 07/28/20 07:37 Body Mass Index 34.3 Gen: no acute distress Neck: supple, no JVD Lungs: clear to auscultation bilaterally Heart: regular rate and rhythm, no murmurs Abd: soft, non-tender, non-distended Ext: LUE fistula with thrill, bilateral leg edema 1+ Skin: No rashes Back no paravertebral muscle spasm,no swelling. Neuro: alert and oriented x3, no focal findings Psych: appropriate affect Objective Data Current Medications Generic Name Dose Route Start Last Admin Trade Name Freq PRN Reason Stop Dose Admin Acetaminophen 650 mg 07/23/20 17:31 07/28/20 10:46 Acetaminophen 325 Mg Tablet PO 650 mg Q6H PRN Administration Pain, Mild (Pain Scale 1-3) Amlodipine Besylate 2.5 mg 07/24/20 09:00 07/28/20 08:34 Amlodipine Besylate 2.5 Mg Tablet PO 2.5 mg DAILY [facility] Administration Protocol Atorvastatin Calcium 10 mg 07/23/20 21:00 07/27/20 20:40 Atorvastatin Calcium 10 Mg Tablet PO 10 mg BEDTIME NARCISO Administration Epoetin Rishi 20,000 unit 07/29/20 07:00 Epoetin Rishi 20,000 Unit/Ml Vial IVPUSH 07/29/20 07:01 ONCE ONE Omeprazole 20 mg 07/25/20 19:10 07/28/20 05:42 Omeprazole 20 Mg Capsule. PO Not Given DAILY@0630 [facility] Pharmacy Consult 1 each 07/23/20 16:08 Consult Rx Perform Med Rec MISCELLANE ONCE PRN Consult order Sevelamer Carbonate 800 mg 07/24/20 12:00 07/28/20 08:34 Sevelamer Carbonate 800 Mg Tablet PO Not Given TIDWM [facility] Sodium Chloride 3 ml 07/24/20 00:00 07/28/20 08:33 0.9 % Sodium Chloride Flush 3 Ml Syringe IVFLUSH 3 ml QSHIFT NARCISO Administration Vitamin B Complex/Folic Acid 1 cap 07/24/20 09:00 07/28/20 08:34 B Complex W-C No.20/Folic Acid Capsule PO 1 cap DAILY NARCISO Administration Vitamin D 50 mcg 07/24/20 09:00 07/28/20 08:34 Cholecalciferol (Vitamin D3) 25 Mcg Tablet PO 50 mcg DAILY NARCISO Administration Labs CBC & Chem 7: 07/28/20 06:49 07/28/20 06:49 Assessment and Plan (1) Acute on chronic anemia: Status: Acute (2) ESRD (end stage renal disease): Status: Acute Assessment and Plan: 80yo F with ESRD on HD TuTa, multiple myeloma with chronic transfusion- dependent anemia, HTN admitted for worsening symptomatic anemia # acute/chronic anemia ,FOBT+ - status post 2u pRBCs /2, 1u pRBCs /, Hb remained stable remains >8 - seen by Dr Malloy, scheduled for EGD/C-scope today, Last C-scope 2005, ?Partial colectomy and ileostomy at [facility] in Mar 2020, received rec from [facility] from last year, will obtain record from early this year, hold warfarin, continue to monitor CBC and follow endoscopy report from today. # anticoagulated with warfarin - unclear indication; will try to get records from [facility], INR 1, warfarin held for FOBT+ stools # ESRD on HD - continue HD as per home sched [facility] [place] [facility] [place] # N/V - resolved # hypoK - repleted, resolved # troponin elevation - flat, asymptomatic; likely due to ESRD # HTN - continue amlodipine # HLD - continue statin # dispo - plan home with VNA # VTE ppx - SCDs, holding warfarin due to question of GI bleed friend David Beverly is primary contact # [phone].
--- NOTE | 2020-07-28 13:36 | P.CONAN_ITS ---
[facility] Active Problems Active Problems: All Active Problems (Updated 07/26/20 @ 18:19 by Doc Malloy) Acute on chronic anemia (Acute) ESRD (end stage renal disease) (Acute) Past Medical History Medical History (Updated 07/26/20 @ 18:19 by Doc Malloy) Acute on chronic anemia High cholesterol History of renal dialysis HTN (hypertension) Kidney failure Multiple myeloma Surgical History Surgical History Hx of colostomy Social History Social History Household Members: None Housing: Apartment Do you presently have visiting nurse or other home services: Yes Patient Tobacco Use Status: Never used Tobacco Use of substances other than those prescribed or required for medical reasons: No Currently Displaying Signs/Symptoms of Drug Intoxication Withdrawal: No Have you been hit, kicked, punched, or otherwise hurt by someone within the past year? If so, by whom?: No Do you feel safe in your current relationship?: Yes Is there a partner from a previous relationship who is making you feel unsafe now?: No Are you made to feel afraid or neglected: No Are you DNR?: No Advance Directives: Yes Advance Directives Information Provided: Yes Advance Directives on File: No Advance Directives Date on File: 07/23/20 Do you have thoughts of harming others: None Do you have a plan to hurt others: No Plan Recently lost weight without trying: No Nutrition Risks: No Nutritional Risk service: No Current occupational status: retired Meds Allergies Allergy/AdvReac Type Severity Reaction Status Date / Time No Known Allergies Allergy Unverified 11/08/19 15:10 Active Medications: Current Medications Generic Name Dose Route Start Last Admin Trade Name Freq PRN Reason Stop Dose Admin Acetaminophen 650 mg 07/23/20 17:31 07/28/20 10:46 Acetaminophen 325 Mg Tablet PO 650 mg Q6H PRN Administration Pain, Mild (Pain Scale 1-3) Amlodipine Besylate 2.5 mg 07/24/20 09:00 07/28/20 08:34 Amlodipine Besylate 2.5 Mg Tablet PO 2.5 mg DAILY NARCISO Administration Protocol Atorvastatin Calcium 10 mg 07/23/20 21:00 07/27/20 20:40 Atorvastatin Calcium 10 Mg Tablet PO 10 mg BEDTIME NARCISO Administration Epoetin Rishi 20,000 unit 07/29/20 07:00 Epoetin Rishi 20,000 Unit/Ml Vial IVPUSH 07/29/20 07:01 ONCE ONE Omeprazole 20 mg 07/25/20 19:10 07/28/20 05:42 Omeprazole 20 Mg Capsule. PO Not Given DAILY@0630 [facility] Pharmacy Consult 1 each 07/23/20 16:08 Consult Rx Perform Med Rec MISCELLANE ONCE PRN Consult order Sevelamer Carbonate 800 mg 07/24/20 12:00 07/28/20 12:35 Sevelamer Carbonate 800 Mg Tablet PO Not Given TIDWM [facility] Sodium Chloride 3 ml 07/24/20 00:00 07/28/20 08:33 0.9 % Sodium Chloride Flush 3 Ml Syringe IVFLUSH 3 ml QSHIFT [facility] Administration Vitamin B Complex/Folic Acid 1 cap 07/24/20 09:00 07/28/20 08:34 B Complex W-C No.20/Folic Acid Capsule PO 1 cap DAILY [facility] Administration Vitamin D 50 mcg 07/24/20 09:00 07/28/20 08:34 Cholecalciferol (Vitamin D3) 25 Mcg Tablet PO 50 mcg DAILY [facility] Administration Home Medications Medication Instructions Recorded Confirmed Last Taken Type B complex with C 20-folic acid 1 cap PO DAILY 07/17/20 07/23/20 Unknown History [Renal Caps] acyclovir 400 mg PO DAILY 07/17/20 07/23/20 Unknown History amlodipine 2.5 mg PO DAILY 07/17/20 07/23/20 07/23/20 History cholecalciferol (vitamin D3) 50 mcg PO DAILY 07/17/20 07/23/20 Unknown History sevelamer carbonate 1 tab PO TID 07/17/20 07/23/20 Unknown History simvastatin 10 mg PO BEDTIME 07/17/20 07/23/20 07/22/20 History warfarin 5 - 10 mg PO DAILY 07/17/20 07/23/20 07/23/20 History Exam Exam Date and Time: July 28, 2020 1336 Height,Weight and Vital Signs: Height 5 ft 3 in Weight 194 lb 0.108 oz Last Vital Signs Temp 98.0 F 07/28/20 13:11 Pulse 72 07/28/20 13:11 Resp 18 07/28/20 13:11 BP 140/68 H 07/28/20 13:11 Pulse Ox 100 07/28/20 13:11 Pertinent Lab Results Pertinent Lab Results: Laboratory Tests 07/23/20 07/23/20 07/23/20 10:41 10:52 10:52 WBC 4.1 L RBC 1.73 L Hgb 5.8 L* Hct 16.7 L* MCV 96.5 MCH 33.5 H MCHC 34.7 RDW 16.3 H Plt Count 126 L MPV 9.2 L Immature Gran % (Auto) 0.5 H Neut % (Auto) 78.2 H Lymph % (Auto) 13.[address] [place] % (Auto) 7.5 Eos % (Auto) 0.0 Baso % (Auto) 0.2 Lymph # (Auto) 0.[address] [place] # (Auto) 0.3 Eos # (Auto) 0.0 Baso # (Auto) 0.0 Abs Immat Gran (auto) 0.02 Absolute Neuts (auto) 3.2 Absolute Nucleated RBC 0.000 Nucleated RBC % (auto) 0.0 Smear Tech's Comments VERIFIED PT 35.5 H D INR 3.0 H APTT 42.0 H D Sodium Potassium Chloride Carbon Dioxide Anion Gap BUN Creatinine Estim Creat Clear Calc Estimated GFR Random Glucose Fasting Glucose Calcium Magnesium Iron TIBC % Saturation Unsat Iron Binding Total Bilirubin Direct Bilirubin AST ALT Alkaline Phosphatase Troponin I High Sens B-Natriuretic Peptide Total Protein Albumin Lipase Stool Occult Blood COVID-19 (ETHAN) Negative COVID-19 Clin Com See Note Blood Type Antibody Screen Crossmatch 07/23/20 07/23/20 07/23/20 10:52 10:52 10:52 WBC RBC Hgb Hct MCV MCH MCHC RDW Plt Count MPV Immature Gran % (Auto) Neut % (Auto) Lymph % (Auto) [place] % (Auto) Eos % (Auto) Baso % (Auto) Lymph # (Auto) [place] # (Auto) Eos # (Auto) Baso # (Auto) Abs Immat Gran (auto) Absolute Neuts (auto) Absolute Nucleated RBC Nucleated RBC % (auto) Smear Tech's Comments PT INR APTT Sodium 141 Potassium 2.8 L Chloride 94 L Carbon Dioxide 34 H Anion Gap 16 BUN 33 H D Creatinine 3.95 H Estim Creat Clear Calc 11.7 Estimated GFR 11 Random Glucose 106 Fasting Glucose Calcium 7.8 L Magnesium 1.8 Iron TIBC % Saturation Unsat Iron Binding Total Bilirubin 0.6 Direct Bilirubin 0.3 AST 24 ALT 11 Alkaline Phosphatase 77 D Troponin I High Sens 66.8 H* B-Natriuretic Peptide 459 H Total Protein 5.4 L Albumin 3.3 L Lipase 13 Stool Occult Blood COVID-19 (ETHAN) COVID-19 Clin Com Blood Type Antibody Screen Crossmatch 07/23/20 07/24/20 07/24/20 11:58 05:22 05:22 WBC 4.3 L RBC 2.19 L D Hgb 7.2 L D Hct 20.5 L* D MCV 93.6 MCH 32.9 MCHC 35.1 H RDW 15.7 Plt Count 116 L MPV 9.5 Immature Gran % (Auto) 0.2 Neut % (Auto) 71.8 Lymph % (Auto) 15.[address] [place] % (Auto) 10.8 Eos % (Auto) 1.4 Baso % (Auto) 0.5 Lymph # (Auto) 0.[address] [place] # (Auto) 0.5 Eos # (Auto) 0.1 Baso # (Auto) 0.0 Abs Immat Gran (auto) 0.01 Absolute Neuts (auto) 3.1 Absolute Nucleated RBC 0.000 Nucleated RBC % (auto) 0.0 Smear Tech's Comments VERIFIED PT INR APTT Sodium 142 Potassium 3.0 L Chloride 97 Carbon Dioxide 34 H Anion Gap 14 BUN 40 H Creatinine 4.87 H* Estim Creat Clear Calc 9.5 Estimated GFR 9 Random Glucose 94 Fasting Glucose Calcium 7.7 L Magnesium 1.8 Iron 93 TIBC 188 L % Saturation 49 Unsat Iron Binding 95 Total Bilirubin Direct Bilirubin AST ALT Alkaline Phosphatase Troponin I High Sens B-Natriuretic Peptide Total Protein Albumin Lipase Stool Occult Blood COVID-19 (ETHAN) COVID-19 Clin Com Blood Type O Positive Antibody Screen NEGATIVE Crossmatch See Detail 07/24/20 07/24/20 07/25/20 05:22 12:09 05:09 WBC 4.9 RBC 2.23 L Hgb 7.2 L Hct 21.3 L MCV 95.5 MCH 32.3 MCHC 33.8 RDW 15.8 Plt Count 130 L MPV 9.7 Immature Gran % (Auto) Neut % (Auto) Lymph % (Auto) [place] % (Auto) Eos % (Auto) Baso % (Auto) Lymph # (Auto) [place] # (Auto) Eos # (Auto) Baso # (Auto) Abs Immat Gran (auto) Absolute Neuts (auto) Absolute Nucleated RBC 0.000 Nucleated RBC % (auto) 0.0 Smear Tech's Comments PT 31.9 H INR 2.7 H APTT Sodium Potassium Chloride Carbon Dioxide Anion Gap BUN Creatinine Estim Creat Clear Calc Estimated GFR Random Glucose Fasting Glucose Calcium Magnesium Iron TIBC % Saturation Unsat Iron Binding Total Bilirubin Direct Bilirubin AST ALT Alkaline Phosphatase Troponin I High Sens B-Natriuretic Peptide Total Protein Albumin Lipase Stool Occult Blood POSITIVE COVID-19 (ETHAN) [employer] [facility] Blood Type Antibody Screen Crossmatch 07/25/20 07/25/20 07/26/20 05:09 05:09 05:56 WBC 5.2 RBC 2.68 L D Hgb 8.8 L D Hct 25.5 L MCV 95.1 MCH 32.8 MCHC 34.5 RDW 15.3 Plt Count 121 L MPV 9.6 Immature Gran % (Auto) 0.2 Neut % (Auto) 68.0 Lymph % (Auto) 14.[address] [place] % (Auto) 12.4 H Eos % (Auto) 4.8 H Baso % (Auto) 0.6 Lymph # (Auto) 0.[address] [place] # (Auto) 0.7 Eos # (Auto) 0.3 Baso # (Auto) 0.0 Abs Immat Gran (auto) 0.01 Absolute Neuts (auto) 3.6 Absolute Nucleated RBC 0.000 Nucleated RBC % (auto) 0.0 Smear Tech's Comments PT 34.2 H INR 2.8 H APTT Sodium 136 Potassium 3.5 Chloride 101 Carbon Dioxide 28 Anion Gap 11 L BUN 15 D Creatinine 2.95 H Estim Creat Clear Calc 15.7 Estimated GFR 15 Random Glucose 88 Fasting Glucose Calcium 8.3 L D Magnesium Iron TIBC % Saturation Unsat Iron Binding Total Bilirubin Direct Bilirubin AST ALT Alkaline Phosphatase Troponin I High Sens B-Natriuretic Peptide Total Protein Albumin Lipase Stool Occult Blood COVID-19 (ETHAN) COVID-19 [employer] Blood Type Antibody Screen Crossmatch 07/26/20 07/26/20 07/26/20 05:56 05:57 07:50 WBC RBC Hgb Hct MCV MCH MCHC RDW Plt Count MPV Immature Gran % (Auto) Neut % (Auto) Lymph % (Auto) [place] % (Auto) Eos % (Auto) Baso % (Auto) Lymph # (Auto) [place] # (Auto) Eos # (Auto) Baso # (Auto) Abs Immat Gran (auto) Absolute Neuts (auto) Absolute Nucleated RBC Nucleated RBC % (auto) Smear Tech's Comments PT 20.8 H D 19.9 H INR 1.7 H 1.7 H APTT Sodium 134 L Potassium 4.4 D Chloride 100 Carbon Dioxide 22 Anion Gap 16 BUN 28 H D Creatinine 4.22 H* Estim Creat Clear Calc 11.0 Estimated GFR 10 Random Glucose 84 Fasting Glucose Calcium 7.8 L D Magnesium Iron TIBC % Saturation Unsat Iron Binding Total Bilirubin Direct Bilirubin AST ALT Alkaline Phosphatase Troponin I High Sens B-Natriuretic Peptide Total Protein Albumin Lipase Stool Occult Blood COVID-19 (ETHAN) COVID-19 Clin Com Blood Type Antibody Screen Crossmatch 07/27/20 07/27/20 07/28/20 07:53 07:53 06:49 WBC 4.1 L RBC 2.70 L Hgb 8.9 L Hct 25.9 L MCV 95.9 MCH 33.0 MCHC 34.4 RDW 14.9 Plt Count 119 L MPV 9.5 Immature Gran % (Auto) 0.2 Neut % (Auto) 64.0 Lymph % (Auto) 16.[address] [place] % (Auto) 16.0 H Eos % (Auto) 3.0 Baso % (Auto) 0.5 Lymph # (Auto) 0.[address] [place] # (Auto) 0.7 Eos # (Auto) 0.1 Baso # (Auto) 0.0 Abs Immat Gran (auto) 0.01 Absolute Neuts (auto) 2.6 Absolute Nucleated RBC 0.000 Nucleated RBC % (auto) 0.0 Smear Tech's Comments VERIFIED PT 14.3 H D INR 1.2 H APTT Sodium 134 L Potassium 3.9 Chloride 101 Carbon Dioxide 25 Anion Gap 12 BUN 17 H Creatinine 3.26 H Estim Creat Clear Calc 14.2 Estimated GFR 14 Random Glucose 85 Fasting Glucose Calcium 7.8 L Magnesium Iron TIBC % Saturation Unsat Iron Binding Total Bilirubin Direct Bilirubin AST ALT Alkaline Phosphatase Troponin I High Sens B-Natriuretic Peptide Total Protein Albumin Lipase Stool Occult Blood COVID-19 (ETHAN) COVID-19 Clin Com Blood Type Antibody Screen Crossmatch 07/28/20 07/28/20 06:49 06:50 WBC RBC Hgb Hct MCV MCH MCHC RDW Plt Count MPV Immature Gran % (Auto) Neut % (Auto) Lymph % (Auto) [place] % (Auto) Eos % (Auto) Baso % (Auto) Lymph # (Auto) [place] # (Auto) Eos # (Auto) Baso # (Auto) Abs Immat Gran (auto) Absolute Neuts (auto) Absolute Nucleated RBC Nucleated RBC % (auto) Smear Tech's Comments PT 12.2 INR 1.0 APTT Sodium 131 L Potassium 3.8 Chloride 101 Carbon Dioxide 21 L Anion Gap 13 BUN 30 H D Creatinine 4.36 H* Estim Creat Clear Calc 10.6 Estimated GFR 10 Random Glucose Fasting Glucose 78 Calcium 7.7 L Magnesium Iron TIBC % Saturation Unsat Iron Binding Total Bilirubin Direct Bilirubin AST ALT Alkaline Phosphatase Troponin I High Sens B-Natriuretic Peptide Total Protein Albumin Lipase Stool Occult Blood COVID-19 (ETHAN) COVID-19 Clin Com Blood Type Antibody Screen Crossmatch Airway Mallampati Class: II TM Dist: >3cm Neck ROM: Full Denture: Upper and Lower Assessment and Plan Assessment Anesthesia Assessment: Anesthesia Plan Discussed and Chart Reviewed Final Anesthetic Review NPO: Yes ASA Class: III Final Preanesthetic Review: No Changes in Pt Med Stat, Meds/Allgs Chart Reviewed, Consent Obtained/Reviewed and Anes Risks/Benef Reviewed Patient Risk: High Procedure Risk: Low Anesthetic Plan Anesthetic Plan: MAC: Disposition: Standard PACU
[2020-07-28] MEDS: 0.9 % Sodium Chloride 1,000 ML 50 ML IVCONT (13:45)
--- NOTE | 2020-07-28 15:43 | P.BOP_ITS ---
Brief Operative Note Date of Service: 07/28/20 Pre-op diagnosis: Anemia, Heme + stool Post-op diagnosis: other (Gastric polyp, Gastritis) Procedure: EGD with clipping x4, injection with Epi, biopsies, snare polypectomy Surgeon: Doc Malloy Anesthesia: MAC Was an Track Repair Laborer used for this Procedure?: No Estimated blood loss (mL): 5.0 Pathology: other (A. Gastric polyp B. Gastric antrum) Condition: stable Disposition: PACU
--- NOTE | 2020-07-28 15:45 | PM.EVENT ---
Event Note Date of Service: 07/28/20 Event Note: EGD-Full note dictated Findings: 1. Approx 1.5 cm Inflammatory, friable, ulcerated, grossly adenomatous polyp in prepyloric antrum along posterior wall. Base clipped x1 and total of 4cc of Epi injected with good blanching. Polyp bx x 2, then snared and recovered with retrieval net. There was no bleeding. Polypectomy site inspected and clipped with 3 more clips with good deployment and good hemostasis 2. Mild antral gastritis--Antrum biopsied x 3 Rec: Check path. PO PPI BID and carafate. No aspirin/anticoagulants x 2 weeks. F/U CBC in AM. Clear liqs for now, but advance tomorrow if stable. Based on this finding I don't think she will need a colonoscopy at this time. Start Iron if Iron indices are low. Thanks
[2020-07-28] MEDS: ondansetron HCL 4 MG/2 ML VIAL IVPUSH (15:55)
[2020-07-28] MEDS: Sucralfate 1 GM TABLET PO ×2 (16:54→20:43)
--- NOTE | 2020-07-28 19:42 | P.PNNP_ITS ---
Subjective Subjective Date of Service: 07/28/20 Interval history: Seen and examined. Events noted Physical Exam Vital Signs: Vital Signs: Last Vital Signs Temp 98.3 F 07/28/20 19:32 Pulse 80 07/28/20 19:32 Resp 18 07/28/20 19:32 BP 140/73 H 07/28/20 19:32 Pulse Ox 98 07/28/20 19:32 Body Mass Index 34.3 Const: General: no acute distress and alert Orientation/consciousness: patient oriented x3 Eyes: EOM: EOMs intact bilaterally Neck: Neck: Yes supple and Yes no JVD Resp: Auscultation: clear to auscultation bilaterally and diminished lung sounds Cardio: Jugular venous distension: no JVD Heart sounds: no gallops and no rubs GI: Palpation (GI): Soft to palpation Neuro: General: patient oriented x3 and moves all extremities Motor exam (neuro): no asterixis Objective Data Labs CBC & Chem 7: 07/28/20 06:49 07/28/20 06:49 Labs: Laboratory Results - last 24 hr 07/28/20 07/28/20 07/28/20 06:49 06:49 06:50 WBC 4.1 L RBC 2.70 L Hgb 8.9 L Hct 25.9 L MCV 95.9 MCH 33.0 MCHC 34.4 RDW 14.9 Plt Count 119 L MPV 9.5 Immature Gran % (Auto) 0.2 Neut % (Auto) 64.0 Lymph % (Auto) 16.3 L [place] % (Auto) 16.0 H Eos % (Auto) 3.0 Baso % (Auto) 0.5 Lymph # (Auto) 0.7 L [place] # (Auto) 0.7 Eos # (Auto) 0.1 Baso # (Auto) 0.0 Abs Immat Gran (auto) 0.01 Absolute Neuts (auto) 2.6 Absolute Nucleated RBC 0.000 Nucleated RBC % (auto) 0.0 Smear Tech's Comments VERIFIED PT 12.2 INR 1.0 Sodium 131 L Potassium 3.8 Chloride 101 Carbon Dioxide 21 L Anion Gap 13 BUN 30 H D Creatinine 4.36 H* Estim Creat Clear Calc 10.6 Estimated GFR 10 Fasting Glucose 78 Calcium 7.7 L Assessment & Plan Assessment and plan (1) ESRD (end stage renal disease): Status: Acute Assessment and Plan: 1. ESRD: TTS at [facility] 2. GIB:s/p xfusionand scoping today; Hb stable; unclear why she is maintained oncouadin ( I called outpt HD unit and it is NOT beingmanaged by HD unjt nor do they know why she is on coumadin) REC: cont HD TTS, procrit as ordere; ques need for coumadin; DDAVP if active bleed Time Spent With Patient Time: Total time spent is greater than 50% in coordination of care (as documented) at patient's floor/unit and/or counseling patient: Procedures Date of Service Date of Service: 07/28/20
[2020-07-28] MEDS: Atorvastatin Calcium 10 MG TABLET PO (20:43)
[2020-07-28] MEDS: Omeprazole 20 MG CAPSULE.DR PO (20:44)
--- NOTE | 2020-07-28 23:45 | OP_ITS ---
SURGEON: Doc Malloy MD INDICATIONS: The patient presents for evaluation of anemia and heme-positive stool. Full consent has been obtained from her for this, including risks of bleeding and perforation. PREOPERATIVE DIAGNOSIS: POSTOPERATIVE DIAGNOSIS: PROCEDURE PERFORMED: Esophagogastroduodenoscopy with biopsies, snare polypectomy, placement of resolution clips, injection with epinephrine. ESTIMATED BLOOD LOSS: COMPLICATIONS: ANESTHESIA: Monitored anesthesia care. ASSISTANTS: SPECIMENS: PREOPERATIVE DIAGNOSES: Anemia and heme-positive stool. POSTOPERATIVE DIAGNOSES: Anemia and heme-positive stool, gastric polyp, gastritis, and hiatal hernia. DESCRIPTION OF PROCEDURE: The patient was placed in the left lateral decubitus position. The Olympus video gastroscope was passed in the posterior oropharynx and upper esophagus under direct vision. The scope was passed slowly into the distal esophagus. The gastroesophageal junction appeared normal at 35 cm. There was no sign of any esophagitis nor Mackay's esophagus. There was a small hiatal hernia. The scope was advanced to the pylorus and duodenum was cannulated to the descending portion. The duodenum including the bulb appeared normal without mass or ulceration. Scope was withdrawn back into the stomach. The pre-pyloric antrum was notable for some mild antral gastritis with some erythema and edema. However, more notably, was what appeared to be an ulcerated and friable possibly adenomatous polyp in the antrum along the posterior wall. It was approximately 15 mm in diameter on a short broad base. It was somewhat friable just by poking it with the biopsy forceps. Two biopsies were obtained from it. The polyp was very friable at that point with a lot of oozing. At that point since I do feel this was the cause of her anemia and its gross appearance, I thought it would be reasonable to remove it to be sure it is not adenomatous and hopefully avoid her needing to have a second procedure. Given its gross appearance, I did place a clip on the base of the polyp with good deployment. This led to cessation of the oozing from the biopsies and some change in color to almost purple. I then injected a total of 4 mL of epinephrine around the base of the polyp with good blanching of the mucosa. The polyp itself was then snared just above the base and the previously applied clip. The polyp was completely removed. The polypectomy site appeared to be clean without any sign of residual polyp nor any bleeding. However, given the gross appearance, I did place 3 more clips on the polypectomy site with good deployment and good hemostasis. The area was irrigated and watched for at least 10 minutes without any sign of bleeding. I did obtain 3 separate biopsies from the gastric antrum as well. Of note, the scope was retroflexed visualizing the proximal stomach carefully, which appeared normal, without any sign of mass or ulceration. The polyp was recovered with a Retrieval Net and brought out of the patient. The scope was readvanced back into the patient and to the polypectomy site. Again, the area was observed and irrigated without any sign of active bleeding. The scope was withdrawn into the esophagus. The esophageal mucosa appeared normal. Scope was withdrawn from the patient. She tolerated the procedure well and was returned to the recovery area in stable condition. IMPRESSION: 1. Friable and somewhat ulcerated gastric antral polyp, status post biopsy, snare polypectomy, placement of resolution clips, and injection with epinephrine. 2. Hiatal hernia. PLAN: The results of the pathology will be checked. She will be kept on oral PPI twice a day and started on Carafate as well. It will be important that she does not use any aspirin nor anticoagulants for at least 2 weeks. The results of the pathology will be checked. She will start clear liquids today and then have her diet advanced as tolerated. Based on these findings, I do not think she will need a colonoscopy at this point for further evaluation. I do feel the findings on today's upper endoscopy would account for her anemia. This has been discussed with her friend, Zach. MD LEXII Ibrahim/ELIJAH / [id number] [email or web address]
[2020-07-29] VITALS: BP 172/82; PULSE 71; RESP 18; TEMP 36.4; O2SAT 97
[2020-07-29 03:31] VITALS: BP 142/68; PULSE 84; RESP 18; TEMP 36.9; O2SAT 98
[2020-07-29 06:25] LABS: Basophils Percent Auto 0.5 % (0-2); Eosinophils Absolute Auto 0.1 X10*3/uL (0.0-0.4); Eosinophils Percent Auto 3.3 % (0-4); Hematocrit 26.8 % (37-47); Hemoglobin 9.3 g/dl (12.0-16.0); Imm Gran Abs Auto 0.01 X10*3/uL (0.00-0.03); Imm Gran Pct Auto 0.2 % (0.0-0.4); Lymphocytes Absolute Auto 0.7 X10*3/uL (1.2-4.9); MANUAL DIFF FLAG SCAN; Mean Corpuscular HGB Conc 34.7 g/dl (31.0-35.0); Mean Corpuscular Hemoglobin 32.9 pg (27.0-33.0); Mean Corpuscular Volume 94.7 fL (80-98); Mean Platelet Volume 9.6 fL (9.4-12.3); Monocytes Absolute Auto 0.7 X10*3/uL (0.1-1.2); Monocytes Percent Auto 16.7 % (2-11); Neutrophils Absolute Auto 2.7 X10*3/uL (2.0-8.3); Neutrophils Percent Auto 63.3 % (45-73); Platelet Count 129 X10*3/uL (160-400); Red Blood Count 2.83 X10*6/uL (4.20-5.50); Red Cell Distribution Width 14.7 % (11.0-16.0); SCAN SMEAR FLAG 1; White Blood Count 4.2 X10*3/uL (4.8-10.8)
[2020-07-29 06:29] LABS: Prothrombin Time 11.7 SEC (10.8-13.0)
[2020-07-29 07:27] LABS: SLIDE REVIEW VERIFIED
[2020-07-29 10:55] VITALS: BP 142/90; PULSE 75; RESP 20; TEMP 36.2; O2SAT 99
[2020-07-29] MEDS: Sucralfate 1 GM TABLET PO ×3 (11:08→20:25)
[2020-07-29] MEDS: 0.9 % Sodium Chloride Flush 3 ML SYRINGE IVFLUSH ×3 (11:08→20:28)
[2020-07-29] MEDS: amLODIPine Besylate 2.5 MG TABLET PO (11:08)
[2020-07-29] MEDS: Omeprazole 20 MG CAPSULE.DR PO ×2 (11:09→20:25)
[2020-07-29] MEDS: Cholecalciferol (Vitamin D3) 25 MCG TABLET 50 MCG PO (11:09)
--- NOTE | 2020-07-29 11:35 | MHC.CLN ---
F/U PT WITH INCREASED NUTRITION RISK R/T PRESSURE INJURY DIET RX: CARDIAC-RECOMMEND LIBERLIZED DIET R/T POOR PO AND INCREASED NEEDS WILL RE-START ENSURE CLEAR BID AND WILDER TO PROMOTE WOUND HEALING SUPPLEMENT TO PROVIDE 640KCALS, 21G PROTEIN MONITOR PO INTAKE
--- NOTE | 2020-07-29 14:13 | HO.PM.IMPN ---
Subjective Subjective Date of Service: 07/30/20 Interval History: Receiving hemodialysis feeling tired, tolerated clear liquid diet denies abdominal pain no GI bleed noted, no nausea no vomiting no other acute issues overnight. ROS General no headache, no dizziness, no fever chills. CVS no chest pain, no palpitation. Respiratory no cough no sob. Gastrointestinal no nausea, no vomiting, no abdominal pain Physical Exam Vital Signs: Vital Signs: Last Vital Signs Temp 97.1 F 07/29/20 10:55 Pulse 75 07/29/20 10:55 Resp 20 07/29/20 10:55 BP 142/90 H 07/29/20 10:55 Pulse Ox 99 07/29/20 10:55 Body Mass Index 34.3 Gen: no acute distress Neck: supple, no JVD Lungs: clear to auscultation bilaterally Heart: regular rate and rhythm, no murmurs Abd: soft, non-tender, non-distended,ileostomy bag functioning well Ext: LUE fistula with thrill, no leg edema Skin: No rashes Back no paravertebral muscle spasm,no swelling. Neuro: alert and oriented x3, no focal findings Psych: appropriate affect Objective Data Current Medications Generic Name Dose Route Start Last Admin Trade Name Freq PRN Reason Stop Dose Admin Acetaminophen 650 mg 07/23/20 17:31 07/28/20 10:46 Acetaminophen 325 Mg Tablet PO 650 mg Q6H PRN Administration Pain, Mild (Pain Scale 1-3) Amlodipine Besylate 2.5 mg 07/24/20 09:00 07/29/20 11:08 Amlodipine Besylate 2.5 Mg Tablet PO 2.5 mg DAILY NARCISO Administration Protocol Atorvastatin Calcium 10 mg 07/23/20 21:00 07/28/20 20:43 Atorvastatin Calcium 10 Mg Tablet PO 10 mg BEDTIME NARCISO Administration Sodium Chloride 1,000 mls @ 50 mls/hr 07/28/20 13:45 07/29/20 11:25 Ns IVCONT Not Given .Q20H NARCISO Medication 1 each 07/28/20 16:41 No Anticoagulants MISCELLANE 08/12/20 15:41 DAILY NARCISO Medication 1 each 07/28/20 16:41 No Aspirin MISCELLANE 08/12/20 15:42 DAILY NARCISO Medication 1 each 07/28/20 16:41 No Nsaids MISCELLANE 09/22/20 15:42 DAILY NARCISO Omeprazole 20 mg 07/28/20 21:00 07/29/20 11:09 Omeprazole 20 Mg Capsule. PO 20 mg BID [facility] Administration Pharmacy Consult 1 each 07/23/20 16:08 Consult Rx Perform Med Rec MISCELLANE ONCE PRN Consult order Sevelamer Carbonate 800 mg 07/24/20 12:00 07/29/20 11:24 Sevelamer Carbonate 800 Mg Tablet PO Not Given TIDWM [facility] Sodium Chloride 3 ml 07/24/20 00:00 07/29/20 11:08 0.9 % Sodium Chloride Flush 3 Ml Syringe IVFLUSH 3 ml QSHIFT [facility] Administration Sucralfate 1 gm 07/28/20 16:41 07/29/20 11:24 Sucralfate 1 Gm Tablet PO Not Given QIDACHS [facility] Vitamin B Complex/Folic Acid 1 cap 07/24/20 09:00 07/29/20 11:09 B Complex W-C No.20/Folic Acid Capsule PO 1 cap DAILY [facility] Administration Vitamin D 50 mcg 07/24/20 09:00 07/29/20 11:09 Cholecalciferol (Vitamin D3) 25 Mcg Tablet PO 50 mcg DAILY NARCISO Administration Labs CBC & Chem 7: 07/30/20 05:45 07/28/20 06:49 Assessment and Plan (1) Acute on chronic anemia: Status: Acute (2) ESRD (end stage renal disease): Status: Acute Assessment and Plan: 80yo F with ESRD on HD TuThSa, multiple myeloma with chronic transfusion-dependent anemia, HTN admitted for worsening symptomatic anemia # acute/chronic anemia ,FOBT+ status post 2u pRBCs /2, 1u pRBCs /4, Hb remained stable remains >8, she underwent upper endoscopy on 07/28/20 that showed friable ulcerated pre-pyloric polyp that was removed pt placed on po ppi and carafate and placed on clear liquid diet that she is tolerating well, therefore will advance diet to regular today Will hold aspirin NSAIDs and anticoagulation for 2 weeks as per GI recommendation, iron studies are within normal range ?Partial colectomy and ileostomy at [facility] in Mar 2020, received rec from [facility] from last year, will obtain record from early this year, hold warfarin, continue to monitor CBC and follow endoscopy report from today. 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 Melchor for need for continued Coumadin therapy # ESRD on HD - continue HD as per home sched TuThSa # N/V - resolved # hypoK - repleted, resolved # troponin elevation - flat, asymptomatic; likely due to ESRD # HTN - continue amlodipine noted to have fluctuating blood pressures need close outpatient follow-up # HLD - continue statin # dispo -home with [facility] in next 24 hours if remains stable # VTE ppx - SCDs, holding warfarin due to question of GI bleed
--- NOTE | 2020-07-29 14:28 | HO.POSTANES ---
Post Anesthesia Evaluation Post Anesthesia Evaluation Vital Signs: Vital Signs Temp Pulse Resp BP Pulse Ox 07/29/20 10:55 97.1 F 75 20 142/90 H 99 07/29/20 03:31 98.4 F 84 18 142/68 H 98 Anesthesia: Monitored Mental Status: Awake Pain Control: Satisfactory Nausea/Vomiting: None Hydration: Adequate Anesthesia-Related Issues: No Anes. Related Issues
[2020-07-29 16:00] VITALS: BP 126/60; PULSE 90; RESP 18; TEMP 36.3; O2SAT 99
[2020-07-29 19:10] VITALS: BP 122/58; PULSE 76; RESP 16; TEMP 37.3; O2SAT 98
--- NOTE | 2020-07-29 19:44 | PM.PNNEP ---
Subjective Subjective Date of Service: 07/29/20 Interval history: Seen and examined, events noted Physical Exam Vital Signs: Vital Signs: Last Vital Signs Temp 99.1 F 07/29/20 19:10 Pulse 76 07/29/20 19:10 Resp 16 07/29/20 19:10 BP 122/58 L 07/29/20 19:10 Pulse Ox 98 07/29/20 19:10 Body Mass Index 34.3 Const: General: no acute distress and alert Orientation/consciousness: patient oriented x3 Eyes: EOM: EOMs intact bilaterally Neck: Neck: Yes supple and Yes no JVD Resp: Auscultation: clear to auscultation bilaterally and diminished lung sounds Cardio: Jugular venous distension: no JVD Heart sounds: no gallops and no rubs GI: Palpation (GI): Soft to palpation Neuro: General: patient oriented x3 and moves all extremities Motor exam (neuro): no asterixis Objective Data Labs CBC & Chem 7: 07/29/20 05:30 07/28/20 06:49 Labs: Laboratory Results - last 24 hr 07/23/20 07/29/20 07/29/20 11:58 05:30 05:30 WBC 4.2 L RBC 2.83 L Hgb 9.3 L Hct 26.8 L MCV 94.7 MCH 32.9 MCHC 34.7 RDW 14.7 Plt Count 129 L MPV 9.6 Immature Gran % (Auto) 0.2 Neut % (Auto) 63.3 Lymph % (Auto) 16.0 L [place] % (Auto) 16.7 H Eos % (Auto) 3.3 Baso % (Auto) 0.5 Lymph # (Auto) 0.7 L [place] # (Auto) 0.7 Eos # (Auto) 0.1 Baso # (Auto) 0.0 Abs Immat Gran (auto) 0.01 Absolute Neuts (auto) 2.7 Absolute Nucleated RBC 0.000 Nucleated RBC % (auto) 0.0 Smear Tech's Comments VERIFIED PT 11.7 INR 1.0 Crossmatch See Detail Assessment & Plan Assessment and plan (1) ESRD (end stage renal disease): Status: Acute Assessment and Plan: 1. ESRD: TTS at [facility] 2. GIB:s/p xfusion; Hb stable; unclear why she is maintained on couadin ( I called outpt HD unit and it is NOT beingmanaged by HD unjt nor do they know why she is on coumadin) REC: cont HD TTS, procrit as ordere; ques need for coumadin; DDAVP if active bleed Time Spent With Patient Time: Total time spent is greater than 50% in coordination of care (as documented) at patient's floor/unit and/or counseling patient: Procedures Date of Service Date of Service: 07/29/20
[2020-07-29] MEDS: Atorvastatin Calcium 10 MG TABLET PO (20:25)
[2020-07-29 23:03] VITALS: BP 129/65; PULSE 75; RESP 17; TEMP 37.2; O2SAT 99
[2020-07-30 04:00] VITALS: BP 134/66; PULSE 77; RESP 18; TEMP 37.1; O2SAT 97
[2020-07-30 06:21] LABS: MANUAL DIFF FLAG NO
[2020-07-30 06:42] LABS: Basophils Percent Auto 0.2 % (0-2); Eosinophils Absolute Auto 0.1 X10*3/uL (0.0-0.4); Eosinophils Percent Auto 3.3 % (0-4); Hematocrit 25.6 % (37-47); Hemoglobin 8.9 g/dl (12.0-16.0); Imm Gran Abs Auto 0.01 X10*3/uL (0.00-0.03); Imm Gran Pct Auto 0.2 % (0.0-0.4); Lymphocytes Absolute Auto 0.9 X10*3/uL (1.2-4.9); Lymphocytes Percent Auto 20.6 % (20-40); Mean Corpuscular HGB Conc 34.8 g/dl (31.0-35.0); Mean Corpuscular Volume 94.8 fL (80-98); Mean Platelet Volume 9.1 fL (9.4-12.3); Monocytes Absolute Auto 0.7 X10*3/uL (0.1-1.2); Monocytes Percent Auto 17.3 % (2-11); Neutrophils Absolute Auto 2.5 X10*3/uL (2.0-8.3); Neutrophils Percent Auto 58.4 % (45-73); Platelet Count 120 X10*3/uL (160-400); Red Cell Distribution Width 14.6 % (11.0-16.0); White Blood Count 4.2 X10*3/uL (4.8-10.8)
[2020-07-30 06:45] LABS: Prothrombin Time 11.9 SEC (10.8-13.0)
[2020-07-30 06:53] VITALS: BP 143/66; PULSE 78; RESP 18; TEMP 36.6; O2SAT 96
[2020-07-30] MEDS: Cholecalciferol (Vitamin D3) 25 MCG TABLET 50 MCG PO (08:24)
[2020-07-30] MEDS: Omeprazole 20 MG CAPSULE.DR PO (08:24)
[2020-07-30] MEDS: Sucralfate 1 GM TABLET PO ×2 (08:25→12:12)
[2020-07-30] MEDS: 0.9 % Sodium Chloride Flush 3 ML SYRINGE IVFLUSH (08:25)
[2020-07-30] MEDS: amLODIPine Besylate 2.5 MG TABLET PO (08:25)
[2020-07-30 10:54] VITALS: BP 156/79; PULSE 72; RESP 18; TEMP 36.5; O2SAT 99
--- NOTE | 2020-07-30 11:00 | MHC.CM.PN ---
pt dccd today with mercedes turner notified f dc
--- NOTE | 2020-07-30 11:37 | P.DS_ITS ---
DS: Providers Provider Date of Service: 07/30/20 Date of admission: 07/23/20 17:00 Primary care physician: Dexter Schafer MD Consults: 07/23/20 17:31 Consult to Nephrology Routine Consulting Provider: Aravind Moya Reason for consultation: esrd on HD , , ; anemia Has provider been notified: No 07/24/20 17:59 Consult to Gastroenterology Routine Consulting Provider: Doc Malloy Reason for consultation: anemia with heme + stools Has provider been notified: No DS: Diagnosis Discharge Diagnosis (1) Acute on chronic anemia: Status: Acute Problem details: Imp: Her anemia has responded well to the transfusions and she has no signs of active GI bleeding nor any other GI process in general. Overall, she appears stable from my standpoint. I did review the situation again with the patient and her granddaughter in detail in regard to the anemia and Heme +, with the possible need for resumption of her Coumadin. Rec: EGD on Friday 07/28, probably in the afternoon. Full consent obtained for this, including risks of bleeding and perforation. F/U CBC and PT/INR. We did review that at some point she might need a colonoscopy via her stoma, but I will need to first review her surgical history from her operation earlier this year at [facility](we're still waiting on those records). The patient and her granddaughter were comfortable with this plan. Thanks. (2) ESRD (end stage renal disease): Status: Acute DS: Medications Discharge Medications Home Medications: Home Medications Medication Instructions Recorded Confirmed B complex with C 20-folic acid 1 cap PO DAILY 07/17/20 07/23/20 [Renal Caps] acyclovir 400 mg PO DAILY 07/17/20 07/23/20 amlodipine 2.5 mg PO DAILY 07/17/20 07/23/20 cholecalciferol (vitamin D3) 50 mcg PO DAILY 07/17/20 07/23/20 sevelamer carbonate 1 tab PO TID 07/17/20 07/23/20 simvastatin 10 mg PO BEDTIME 07/17/20 07/23/20 warfarin 5 - 10 mg PO DAILY 07/17/20 07/23/20 DS: Summary Hospital Course Hospital Course: History of presenting illness Chief Complaint: Nausea, vomiting This is an 80-year-old female who presents to the emergency department with multiple complaints. She states today she began having nausea and vomiting. Following that she began having upper abdominal pain. She also describes generalized weakness. In the emergency department she underwent CT scan of the abdomen which showed no evidence of ileus or obstruction. Chest x-ray showed bibasilar pleural effusions right greater than left. Routine lab work revealed anemia with H/H of 5.8/16.7 as well as potassium of 2.8. She denies any bloody output from her ostomy. She received antiemetics, her potassium was supplemented and a blood transfusion was started. She denies any shortness of breath, dizziness. She has a history of ESRD and attends dialysis Tuesday, , Tuesday. Her last dialysis was yesterday. The decision was made to admit her for further management of anemia. Of note patient was evaluated in the emergency department on July 17 after an unresponsive episode during dialysis. Time she was noted to be anemic and was transfused 1 unit. Admission was requested at that time the patient declined and left against medical advice. 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 placed on po ppi and carafate , diet has been gradually advanced patient is tolerating it without nausea vomiting or diarrhea,rec ahmet hold aspirin NSAIDs and anticoagulation for 2 weeks as per GI recommendation, iron studies are within normal range patient underwent ? Partial colectomy and ileostomy at [facility] in Mar 2020, recommend to follow up with primary care physician Dr. ward and gastroenterology for endoscopy report . Patient noted to have elevated troponin that remain flat patient remained asymptomatic likely due to end-stage renal disease # anticoagulated with warfarin records from [facility], reviewed, patient was placed on Coumadin in April 2020 due to left subclavian vein thrombosis and was recommended to be on Coumadin for 3 months Will recommend to hold Coumadin,for 2 weeks and outpatient follow-up with Dr. Ward for need for continued Coumadin therapy # ESRD on HD - continue HD as per home sched TuThSa # hypoK likely due to GI loss resolved with replacement therapy # HTN - continue amlodipine noted to have fluctuating blood pressures need close outpatient follow-up # HLD - continue statin Time Spent with Patient Time attestation: Total time spent providing and/or coordinating discharge serv ices: Discharge coordination time: Greater than 30 minutes Quality: Stroke Does the patient have a stroke diagnosis?: No Physical Exam Vital Signs: Vital Signs: Last Vital Signs Temp 97.7 F 07/30/20 10:54 Pulse 72 07/30/20 10:54 Resp 18 07/30/20 10:54 BP 156/79 H 07/30/20 10:54 Pulse Ox 99 07/30/20 10:54 Body Mass Index 34.3 Gen: no acute distress Neck: supple, no JVD Lungs: clear to auscultation bilaterally Heart: regular rate and rhythm, no murmurs Abd: soft, non-tender, non-distended,ileostomy bag functioning well Ext: LUE fistula with thrill, no leg edema Skin: No rashes Back no paravertebral muscle spasm,no swelling. Neuro: alert and oriented x3, no focal findings Psych: appropriate affect DS: Data Data Completed and Pending Pending studies at discharge: Pending at discharge 07/28/20 14:51 Surgical [PTH] Routine Labs on day of discharge: Laboratory Results - last 24 hr 07/30/20 07/30/20 05:45 05:45 WBC 4.2 L RBC 2.70 L Hgb 8.9 L Hct 25.6 L MCV 94.8 MCH 33.0 MCHC 34.8 RDW 14.6 Plt Count 120 L MPV 9.1 L Immature Gran % (Auto) 0.2 Neut % (Auto) 58.4 Lymph % (Auto) 20.6 [place] % (Auto) 17.3 H Eos % (Auto) 3.3 Baso % (Auto) 0.2 Lymph # (Auto) 0.9 L [place] # (Auto) 0.7 Eos # (Auto) 0.1 Baso # (Auto) 0.0 Abs Immat Gran (auto) 0.01 Absolute Neuts (auto) 2.5 Absolute Nucleated RBC 0.000 Nucleated RBC % (auto) 0.0 PT 11.9 INR 1.0 Discharge Plan Discharge Patient Disposition: Home Health Service Discharge Diagnosis: Acute blood loss anemia Acute On chronic anemia End-stage renal disease on hemodialysis Referrals: mercedes visiting nurses [Other] - 1 Week Dexter Schafer MD [Primary Care Provider] - 1 Week Discharge Medications: New sucralfate 1 gram Tablet 1 g PO QIDACHS Qty: 120 RF: 0 omeprazole 20 mg Capsule,Delayed Release(Dr/Ec) 20 mg PO BID Qty: 60 RF: 0 Continued simvastatin 10 mg tablet 10 mg PO BEDTIME RF: 0 amlodipine 2.5 mg tablet 2.5 mg PO DAILY RF: 0 Renal Caps 1 mg Capsule 1 cap PO DAILY RF: 0 sevelamer carbonate 800 mg tablet 1 tab PO TID RF: 0 cholecalciferol (vitamin D3) 50 mcg (2,000 unit) Tablet 50 mcg PO DAILY RF: 0 Held warfarin 5 mg tablet 5 - 10 mg PO DAILY RF: 0 Hold Instructions: Resume on 08/13/20. No Action acyclovir 400 mg tablet 400 mg PO DAILY RF: 0 Discharge Orders: Discharge Order (Routine); Ordered 07/30/20 Ordered By: Kena Justin Diet: low fat, low cholesterol and low salt diet Activity on Discharge: As tolerated Stand Alone Forms: Patient Portal Discharge page Care Plan Goals: Acute on chronic anemia likely due to GI loss from friable polyp, normal iron studies, status post polypectomy follow-up with gastroenterology and primary care physician to obtain pathology report meanwhile take Prilosec twice daily and Carafate 4 times a day Health Concerns: Anemia likely due to friable polyp that has been removed, hold aspirin, Coumadin for 2 weeks avoid oral Advil Motrin and NSAIDs Follow-up with primary care physician for need of continued Coumadin therapy Plan of Treatment: Follow-up with Dr. Malloy in 2 weeks follow-up with Dr. ward in 1 week, continue hemodialysis Tuesday and Tuesday as before Assessment: As above
[2020-07-30 11:59] VITALS: BP 156/79; PULSE 72; O2SAT 99
== END 2020-07-30 15:09 | disposition home health service (06) | DRG 393 ==
LOC: HO.ED 15:23 → HO.EDOVER 17:35 → HO.IMC 18:49
PROVIDERS: Internal Medicine; Physician Assistant; Admitting Provider Physician Assistant Medical; Emergency Provider Emergency Medicine; PCP Family Medicine; Visit Provider Hospitalist
PROC: 0DJ08ZZ Inspection of Upper Intestinal Tract, Via Natural or Artificial Opening Endoscopic (ICD-10-PCS; CPT 43235; principal; 2020-07-28 13:20)
DX: K31.7 Polyp of stomach and duodenum (principal); N18.6 End stage renal disease; I12.0 Hypertensive chronic kidney disease with stage 5 chronic kidney disease or end stage renal disease; J90 Pleural effusion, not elsewhere classified; E87.6 Hypokalemia; D50.0 Iron deficiency anemia secondary to blood loss (chronic); Z20.822 Contact with and (suspected) exposure to COVID-19; Z99.2 Dependence on renal dialysis; K44.9 Diaphragmatic hernia without obstruction or gangrene; Z93.2 Ileostomy status; E78.5 Hyperlipidemia, unspecified; K29.70 Gastritis, unspecified, without bleeding; Z79.01 Long term (current) use of anticoagulants; Z79.899 Other long term (current) drug therapy
CPT/HCPCS: 36415; 71045; 74176; 80048; 80076; 82272; 83540; 83690; 83735; 83880; 84484; 85025; 85027; 85610; 85730; 86850; 86900; 86901; 86923; 87635; 88305; 88342; 90999; 93005; 97110; 97162; 99285; J0171; J0885; J1200; J2405; J2765; J3475; P9016

== ENCOUNTER 2021-11-23 07:41 | Outpatient (REF) | payer MEDICARE, SELFPAY ==
[2021-11-23 07:20] LABS: MANUAL DIFF FLAG NO
[2021-11-23 07:38] LABS: Basophils Percent Auto 0.4 % (0-2); Eosinophils Percent Auto 0.8 % (0-4); Hematocrit 27.5 % (37.0-47.0); Hemoglobin 9.2 g/dl (12.0-16.0); Imm Gran Abs Auto 0.02 X10*3/uL (0.00-0.03); Imm Gran Pct Auto 0.4 % (0.0-0.4); Lymphocytes Absolute Auto 1.2 X10*3/uL (1.2-4.9); Lymphocytes Percent Auto 24.9 % (20-40); Mean Corpuscular HGB Conc 33.5 g/dl (31.0-35.0); Mean Corpuscular Hemoglobin 33.6 pg (27.0-33.0); Mean Corpuscular Volume 100.4 fL (80.0-98.0); Monocytes Absolute Auto 0.7 X10*3/uL (0.1-1.2); Monocytes Percent Auto 14.8 % (2-11); Neutrophils Absolute Auto 2.8 x10*3/uL (2.0-8.3); Neutrophils Percent Auto 58.7 % (45-73); Platelet Count 163 X10*3/uL (160-400); Red Blood Count 2.74 X10*6/uL (4.20-5.50); Red Cell Distribution Width 14.9 % (11.0-16.0); White Blood Count 4.7 X10*3/uL (4.8-10.8)
[2021-11-23 08:11] LABS: Anion Gap 22 (12-20); Blood Urea Nitrogen 47 mg/dL (9-16); Calcium 8.7 mg/dL (8.4-10.2); Carbon Dioxide 26 mmol/L (22-29); Chloride 92 mmol/L (96-108); Estimated Glomerular Filt Rate 7; Glucose Random 68 mg/dL (60-115); Potassium 4.2 mmol/L (3.3-5.1); Sodium 136 mmol/L (135-145)
== END 2021-11-23 07:42 | disposition home or self-care (01) ==
LOC: HO.MMNH1L 07:41
PROVIDERS: Visit Provider Family Medicine
DX: N18.6 End stage renal disease (principal); Z91.81 History of falling
CPT/HCPCS: 36415; 80048; 85025

== ENCOUNTER 2021-12-26 09:33 | Emergency (ER) | payer MEDICARE, SELFPAY ==
--- NOTE | 2021-12-26 09:54 | ED_ITS ---
HPI - General Adult General Chief complaint: Medical Clearance Stated complaint: WEAKNESS FROM SNF PER EMS Time Seen by Provider: 12/26/21 09:38 Source: patient and EMS Mode of arrival: EMS History of Present Illness HPI narrative: This this is 81 years old female with chronic renal failure on dialysis due today residential resident from [facility] ,was sent here by 911 call because no ride available for dialysis. The patient denies any fever vomiting diarrhea.She has hx of anemia,HTN,multiple myeloma. Onset (ago): hour(s) (1) Radiation: non-radiation Severity: mild Relieving factors: none Exacerbating factors: none Related Data Home Medications Medication Instructions Recorded Confirmed acyclovir 400 mg tablet 400 mg PO DAILY 07/17/20 07/23/20 amlodipine 2.5 mg tablet 2.5 mg PO DAILY 07/17/20 07/23/20 cholecalciferol (vitamin D3) 50 50 mcg PO DAILY 07/17/20 07/23/20 mcg (2,000 unit) tablet sevelamer carbonate 800 mg tablet 1 tab PO TID 07/17/20 07/23/20 simvastatin 10 mg tablet 10 mg PO BEDTIME 07/17/20 07/23/20 vitamin B complex and vitamin C 1 cap PO DAILY 07/17/20 07/23/20 no.20-folic acid 1 mg capsule (Renal Caps) warfarin 5 mg tablet 5 - 10 mg PO DAILY 07/17/20 07/23/20 Previous Rx's Medication Instructions Recorded omeprazole 20 mg capsule,delayed 20 mg PO BID #60 caps 07/30/20 release sucralfate 1 gram tablet 1 g PO QIDACHS #120 tabs 07/30/20 Allergies Allergy/AdvReac Type Severity Reaction Status Date / Time No Known Allergies Allergy Verified 12/26/21 09:55 Review of Systems Review of Systems: Yes all other systems are reviewed and are negative Cardiovascular: Cardiovascular: Denies chest pain Respiratory: Respiratory: Reports no additional respiratory complaints Gastrointestinal: Gastrointestinal: Denies nausea and Denies vomiting Neurologic: Reports system reviewed and no additional complaints, except as documented PMFSH Past Medical History Medical History Acute on chronic anemia High cholesterol History of renal dialysis HTN (hypertension) Kidney failure Multiple myeloma Surgical History Hx of colostomy Social History Social History Household Members: None Housing: Apartment Do you presently have visiting nurse or other home services: Yes Patient Tobacco Use Status: Never used Tobacco Advance Directives: No Advance Directives Date on File: 07/23/20 service: No Current occupational status: retired Physical Exam ED Vital Signs: Vital Signs - 24 hr 12/26/21 09:55 Temperature 98.5 F Pulse Rate 74 Respiratory Rate 18 Blood Pressure 113/55 L Pulse Oximetry 98 Oxygen Delivery Method Room Air BMI result Body Mass Index 43.0 Const General: cooperative, comfortable, no acute distress and well developed Nutritional Appearance: average body habitus Orientation/consciousness: patient oriented x3 HENMT Head: Yes normal to inspection Face and sinus: Yes normal facial exam Mouth: Normal oral and palatal mucosa present Throat: Yes posterior oropharynx normal Neck Neck: Yes normal visual inspection and Yes full ROM Thyroid: Thyroid normal Chest Chest palpation & inspection: normal inspection of the chest Resp Effort & Inspection: normal respiratory effort Auscultation: clear to auscultation bilaterally Cardio Jugular venous distension: no JVD Rate: regular rate Rhythm: regular rhythm GI Inspection: Yes normal to inspection Palpation (GI): Soft to palpation, not firm, nontender and no guarding Auscultation: normal bowel sounds Skin General skin exam: no rashes or lesions noted and elasticity normal Lesions: no lesions Rashes: no rashes Neuro General: patient oriented x3 Cranial nerves: Yes CN's II-XII intact bilaterally Course Reevaluation(s) Reevaluation #1: I consulted the case loader operator Maddie Ro she arrange an ambulance for dialysis at 10:30. At this point will discharge the patient to dialysis Time: 10:29 Discharge Plan Discharge Clinical Impression: ESRD (end stage renal disease) Patient Disposition: Xfer SNF Transfer Details: TO [facility] [address],[place], THEN BACK TO [facility] Instructions: Chronic Kidney Disease Diet (DC) Additional Instructions: Follow-up with your primary care physician ambulance will take you to dialysis Prescriptions: No Action simvastatin 10 mg tablet 10 mg PO BEDTIME amlodipine 2.5 mg tablet 2.5 mg PO DAILY acyclovir 400 mg tablet 400 mg PO DAILY warfarin 5 mg tablet 5 - 10 mg PO DAILY Hold Instructions: Resume on 08/13/20. Renal Caps 1 mg Capsule 1 cap PO DAILY sevelamer carbonate 800 mg tablet 1 tab PO TID cholecalciferol (vitamin D3) 50 mcg (2,000 unit) Tablet 50 mcg PO DAILY sucralfate 1 gram Tablet 1 g PO QIDACHS Qty: 120 0RF omeprazole 20 mg Capsule,Delayed Release(Dr/Ec) 20 mg PO BID Qty: 60 0RF Interventions: ED Discharge Assessment Last Done: 12/26/21 10:46 Discharge Date/Time: 12/26/21 10:47
[2021-12-26 09:55] VITALS: BP 113/55; PULSE 74; RESP 18; TEMP 36.9; O2SAT 98; BMI 43.0
--- NOTE | 2021-12-26 10:07 | PC.NURSE ---
[facility] with Nicole Marshall RN. at [facility]. Patient arrived 3 days ago. No transportation arranged. RN states they can't find exact location of dialysis. Family thinks it's [facility] in [place].
--- NOTE | 2021-12-26 10:11 | PC.NURSE ---
[facility] behind [address] nannette RN on phone. [address] [facility]. they will take patient as soon as she's available. [phone]
--- NOTE | 2021-12-26 10:40 | MHC.CM.ED ---
Received consult for assessment of d/c needs: pt arrived to [facility] ED from [facility] via 911 Fire/EMS. Per report, facility did not have transportation arranged for pt's 11 am hemodialysis appointment today at [facility] and called 911 to have pt brought to [facility] ED for management. Call placed to [facility]: spoke with RN who is a traveler. She did not have much information re: pt and her admission as the admission packet hasn't been completed All she knew was that the pt arrived to [facility] on 12/24 for STR and had HD scheduled today. She states she contacted the manager country production corrugator who gave her a list of transportation services to call but after no success, she was instructed to call 911 to have her brought to [facility] ED. Call placed to Christina who was able to provide BLS transportation for pt to make her 11 am chair time. They will also transport pt back to [facility] when her session is completed. [facility] called to inform them of plan. Call placed to [facility] HILDA Dixon at [phone]: she states that she was told the pt's granddtr would provide HD transportation but this was not correct. She stated she instructed the RN to call 911 when other transportation could not be secured to avoid a delay in care Destiny stated that [facility] could just dialyze pt and send her back Explained that [facility] is not a licensed outpt dialysis center and would not dialyze her unless she had a qualifying medical need for admission. Destiny understands pt will return to [facility] following her session and that the facility would need to ensure pt's transportation for Tuesday and not resort to 91 and [facility] ED services. Met with pt to discuss above plans. She is in agreement.
== END 2021-12-26 10:47 | disposition skilled nursing facility (03) ==
PROVIDERS: Emergency Provider Emergency Medicine; PCP Internal Medicine
DX: I12.0 Hypertensive chronic kidney disease with stage 5 chronic kidney disease or end stage renal disease (principal); N18.6 End stage renal disease; Z99.2 Dependence on renal dialysis; E78.5 Hyperlipidemia, unspecified; Z79.02 Long term (current) use of antithrombotics/antiplatelets
CPT/HCPCS: 99282